=== PATIENT | male | born 1945 | race Caucasian/White ===

== ENCOUNTER → 2017-09-12 18:02 | Outpatient (CLI) | payer MEDICARE, SELFPAY | PROVIDERS: Family Provider Internal Medicine; Visit Provider Nurse Practitioner Adult Health | DX: N39.0 Urinary tract infection, site not specified (principal) | CPT/HCPCS: 87077; 87086; 87088; 87186 ==

== ENCOUNTER 2017-10-11 13:50 | Outpatient (RCR) | payer MEDICARE, OTHER, SELFPAY ==
--- NOTE | 2017-10-11 14:59 | HP.PTEVAL_ITS ---
Patient's Visit Information NIKHIL DIAZ is a 72 year old M referred to Physical Therapy by Edna MINOR with a diagnosis of DDD, L/S spasms. Date of Evaluation: 10/11/17 Physical Therapist: Darell Hester DPT, OC - Visit Plan Frequency: 2x /Week Duration: 4-6 Weeks Plan: 2x/week for 4-6 for. 1. Gentl L/S AROM and progression. Needs pelvic ROM improvement. 2. HS, quad, hip flexor, ITB, prir stretches and progress to HEP, may rollout also. 3. Core stregnth and progress to HEP. Ensure appropriate posture - Subjective Subjective: LBP. I have arthritis. It was spasming to where I could not leave the house for three days early in the week. Missed work. Spasming upon transfers. Pain started upon getting out of shower, no injury. Weak backs in the family. In house for three days and back to wrok yesterday. 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 This spasming has not happened before but he has h/o of some intermittent back discomfort. Works out in basement intermittently. Stretches HS when working out. Biking si hobby and can't wait to do it. Uses recumbent that he uses but hasn't since the fall. Worse with standing. Comfortable at static sit. Trasnfer to sit is worse part. Turning in bed is uncomfortable. Basic ADLs take a little longer. - Pain LBP Pain Intensity (Out of 10): 2 Pain Intensity Range: 0, 8 Comment: pressure - Objective Slow to get up out of chair and shift weight on mat table. Walks I and well. Very tight and hesitant to move pelvis, very little active pelvic ROM. L/S ROM ext mod limited adn pain, flexion Min limited and painful near end range, SB B max limited and hesitant. reflexes 2/3 in patella and achilles. sensation LE WNL to gross light touch. Strength LE 5/5. HS, glut, piri, quad and ITB all max tight - Goals Goal 1:: Pain 0-1/10 at all times especially with transfers. Goal Time Frame: 4-6 Weeks Goal 2:: Full L/S AROM without pain Goal Time Frame: 4-6 Weeks Goal 3:: Patient feel 95% better and back to all original activites without hesitation Goal Time Frame: 4-6 Weeks Goal 4:: Pt I in approp HEP to minimize future problems. Goal Time Frame: 4-6 Weeks - Rehabilitation Potential Physical Therapy Diagnosis: DDD acute pain and inflammation. Rehabilitation Potential: Good - Anticipated Interventions Patient/Client Instruction: Educate patient on: Condition, Plan of Care For the Purpose of:: To decrease pain, To increase ROM, To improve ability of physical actions for home/community/work/leisure Therapeutic Exercise to Include: Flexibilty training, Passive ROM, Active ROM, Dynamic Lumbar Stabilization For the Purpose of:: To decrease pain, To increase ROM, To improve muscle performance and motor function, To improve ability of physical actions for home/ community/work/leisure Manual Therapy Techniques to Include: Soft tissue mobilization For the Purpose of:: To increase ROM, To improve nutrient delivery to tissue Cryotherapy (ice pack, ice massage): Yes For the Purpose of:: To decrease pain, To decrease swelling/inflammation Thank you for the opportunity to evaluate your patient. For Medicare and Medicare HMO plans, please review the plan of care and approve it. It will need to be FAXED BACK to us at [phone] for Medicare purposes. Please let me know if there are questions or concerns regarding this plan of care. Physician Signature: Date:
--- NOTE | 2017-10-21 12:29 | HP.PTDCSUM ---
HP - PT D/C Summary It has been my pleasure to treat NIKHIL DIAZ under orders from DR.DBONEZ Jake for the diagnosis of DDD, L/S spasms for a total of 1 visit(s). Discharge Date: Please see the following information for a summary of their discharge status. - Subjective Subjective: cancelled all visits as it is feeling better. - Pain LBP Pain Intensity (Out of 10): 2 - Goals Goal 1:: Pain 0-1/10 at all times especially with transfers. Goal 2:: Full L/S AROM without pain Goal 3:: Patient feel 95% better and back to all original activites without hesitation Goal 4:: Pt I in approp HEP to minimize future problems. - Plan Plan: D/C at patients request as he is feeling better and does not wish to return. - D/C Information If there are questions or concerns regarding this patient's physical therapy, please feel free to call me at [phone]. Thank you for the referral of this patient. Sincerely, Darell Hester, DPT, OC
== END 2017-10-11 19:00 | disposition home or self-care (01) ==
LOC: PT 13:50
PROVIDERS: Family Provider Internal Medicine; PCP Internal Medicine; Visit Provider Internal Medicine
DX: M62.830 Muscle spasm of back (principal); M51.36 Other intervertebral disc degeneration, lumbar region
CPT/HCPCS: 97110; 97162

== ENCOUNTER → 2017-10-14 13:18 | Outpatient (CLI) | payer MEDICARE, OTHER, SELFPAY | PROVIDERS: Family Provider Internal Medicine; PCP Internal Medicine; Visit Provider Nurse Practitioner Adult Health | DX: N39.0 Urinary tract infection, site not specified (principal) | CPT/HCPCS: 87086; 87088 ==

== ENCOUNTER → 2018-09-29 17:03 | Outpatient (CLI) | payer MEDICARE, OTHER, SELFPAY ==
[2018-04-29 09:31] VITALS: BMI 32.5
--- NOTE | 2018-09-29 17:12 | RAD_ITS ---
STUDY: X-RAY - LEFT SHOULDER REASON FOR EXAM: Male, 73 years old. Shoulder pain TECHNIQUE: 3 view(s) of the shoulder. COMPARISON: None. FINDINGS: Degenerative changes. No acute fracture or dislocation. The soft tissue structures are unremarkable. Normal visualized pulmonary apex. RAD/Shoulder min 2 Views IMPRESSION: No acute fracture or dislocation. Degenerative changes. Electronically Signed: Sriram Fernandes, at 6:21 EDT Tel , Service support ,
== END ==
PROVIDERS: Family Provider Internal Medicine; PCP Internal Medicine; Referring Provider Internal Medicine; Visit Provider Internal Medicine
DX: M19.012 Primary osteoarthritis, left shoulder (principal)
CPT/HCPCS: 73030

== ENCOUNTER → 2018-12-01 16:51 | Outpatient (CLI) | payer MEDICARE, OTHER, SELFPAY ==
[2018-04-29 09:31] VITALS: BMI 32.5
== END ==
PROVIDERS: Family Provider Internal Medicine; PCP Internal Medicine; Referring Provider Nurse Practitioner Adult Health; Visit Provider Nurse Practitioner Adult Health
DX: R31.0 Gross hematuria (principal)
CPT/HCPCS: 87077; 87086; 87088; 87186

== ENCOUNTER → 2018-12-12 17:46 | Outpatient (CLI) | payer MEDICARE, OTHER, SELFPAY ==
--- NOTE | 2018-12-12 17:49 | CT_ITS ---
STUDY: CT ABDOMEN AND PELVIS WITHOUT CONTRAST REASON FOR EXAM: Male, 73 years old. Hematuria RADIATION DOSAGE (If Supplied By Facility): DLP = ( 1331.18 ) mGycm TECHNIQUE: Transaxial images were obtained from the dome of the diaphragm to the symphysis pubis without oral contrast, and without intravenous contrast. Sagittal and coronal images were reconstructed. Individualized dose optimization techniques were used for this CT. COMPARISON: CT abdomen and pelvis March 05, 2016 FINDINGS: Evaluation of the abdominal viscera is limited in the absence of intravenous contrast. The visualized lung bases are clear. The visualized portions of the heart and pericardium are within normal limits. There are no calcified gallstones present. The liver demonstrates an unremarkable unenhanced appearance. The spleen is normal in size. The pancreas demonstrates an unremarkable unenhanced appearance. The adrenal glands are within normal limits. There is now a right UPJ stone with mild hydronephrosis and perinephric edema. There is a left renal mid to lower pole 8 mm stone and a left renal lower pole 4 mm stone. Prostatic seeds are present. Normal visualized stomach. There is no bowel obstruction or inflammation. The appendix is not visualized, but there are no findings to suggest acute appendicitis. The aorta is normal in caliber. There is no abdominal or pelvic free air, free fluid, fluid collection or lymphadenopathy. There are no destructive osseous lesions. CT/Abdomen/Pelvis without Cont IMPRESSION: Right UPJ stone, new from prior, with mild hydronephrosis and perinephric edema. Nonobstructing left renal stones. Electronically Signed: Ran Matute, at 18:26 EDT Tel , Service support ,
[2018-12-12 18:06] LABS: CREATININE FINGERSTICK 3.3 mg/dL (0.70-1.30)
== END ==
PROVIDERS: Family Provider Internal Medicine; PCP Internal Medicine; Referring Provider Urology; Visit Provider Urology
DX: N13.2 Hydronephrosis with renal and ureteral calculous obstruction (principal)
CPT/HCPCS: 74176

== ENCOUNTER 2018-12-13 10:19 | Inpatient (IN) | payer MEDICARE, OTHER, SELFPAY ==
[2018-12-13 10:25] VITALS: PULSE 61; BMI 35.4
--- NOTE | 2018-12-13 10:35 | HP.PCM_ITS ---
History and Physical Date of Admission: 12/13/18 CC: I have blood in my urine. HPI: NIKHIL DIAZ is a 73 year-old male established patient who is here for blood in the urine. CT scan done and found a large obstructing right kidney stone with obstruction. Cr elevated and develop acute renal insufficience. He has had gross hematuria intermittently for the past month. He did see the blood in his urine. He has not seen blood clots. He does not have a burning sensation when he urinates. He is not currently having trouble urinating. He has not recently had unwanted weight loss. ALLERGIES: None MEDICATIONS: Flomax 0.4 mg capsule 1 capsule PO Daily Amlodipine Besylate Aspirin Ec 81 mg tablet, delayed release Atorvastatin Calcium 20 mg tablet Citalopram Hbr 40 mg tablet Eliquis Fenofibrate Valsartan-Hydrochlorothiazide Vitamin D Notes: Has had the pneumonia vaccine PSH: Cysto Dilate Ureteral Stricture - 2014 Cysto Remove Stent FB Sim - 2014 Cysto/Uretero W/Lithotripsy - 2014 Cystoscopy - 02/25/2017 Hernia Repair - 1999 Prostate Needle Biopsy - 2007 Transrectal Biopsy US - 2007 US Guidance Brachytherapy - 2007 NON- PSH: Colonoscopy Heart Surgery (Unspecified) Patient documented to have received pneumococcal vaccination Shoulder Surgery (Unspecified) PMH: Benign prostatic hyperplasia with lower urinary tract symptoms - 09/12/2017 Malignant neoplasm of prostate - 09/12/2017, - 02/25/2017, - 02/07/2017, - 2015, - 2014, - 2013, - 2012 Urinary tract infection, site not specified - 09/12/2017 Gross hematuria - 02/25/2017, - 02/07/2017, - 2014 Calculus of kidney - 2015 Male erectile dysfunction, unspecified - 2013, - 2012 Urgency of urination - 2013 Frequency of micturition Personal history of malignant neoplasm of prostate Poor urinary stream NON- PMH: Essential (primary) hypertension Heart disease, unspecified Hyperlipidemia, unspecified Major depressive disorder, single episode, unspecified Unspecified hearing loss, unspecified ear FAMILY HISTORY: Cardiovascular disease - Brother Colitis - Mother Parkinson's Disease - Father Prostate Cancer - Grandfather Strokes - Father SOCIAL HISTORY: Marital Status: Preferred Language: Georgian; Ethnicity: Not Or ; Race: White Current Smoking Status: Patient does not smoke anymore. Does not use smokeless tobacco. Social Drinker. Does not use drugs. Drinks 3 caffeinated drinks per day. Has not had a blood transfusion. 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 Notes: Pt smokes occas. cigar. Does a lot of biking REVIEW OF SYSTEMS: Constitutional: Patient denies fever, chills, weight loss, and weight gain. Eyes: Patient denies cataracts, vision problems, and blurry vision. Ears, Nose, Mouth, Throat: Patient denies hearing loss, sinus infections, nasal stuffiness, and sleep apnea. Cardiovascular: h/o a fib and heart ablation x 2. Patient denies chest pains, swollen ankles, irregular heartbeat, and pacemaker/defibrillator. Gastrointestinal: Patient denies abdominal pain, nausea/vomiting, and change in bowels. Genitourinary: Patient reports blood in urine and history of stones. Patient denies frequent urination, urinary retention, get up at night to void, leakage of urine, frequent urinary tract infections, difficulty starting stream, weak stream, and bedwetting. Musculoskeletal: shoulder arthritis. Patient reports arthritis. Patient denies sore muscles, back pain, and gout. Neurological: Patient denies numbness, dizziness, stroke/tia, and history of falling/unsteadiness.. Hematologic/Lymphatic: Patient denies swollen glands, abnormal bleeding, transfusion history, and blood clots/dvt/pulmonary embolism. VITAL SIGNS: Weight 250 lb / 113.4 kg Height 72 in / 182.88 cm BP 138/86 mmHg BMI 33.9 kg/m? PHYSICAL EXAMINATION: Anus and Perineum: No hemorrhoids. No anal stenosis. No rectal fissure, no anal fissure. No edema, no dimple, no perineal tenderness, no anal tenderness. Prostate: flat no nodules Seminal Vesicles: Nonpalpable. Sphincter Tone: Normal sphincter. No rectal tenderness. No rectal mass. MULTI-SYSTEM PHYSICAL EXAMINATION: Constitutional: Well-nourished. No physical deformities. Normally developed. Good grooming. Neurologic / Psychiatric: Oriented to time, oriented to place, oriented to person. No depression, no anxiety, no agitation. PAST DATA REVIEWED: Source Of History: Patient Records Review: Previous Patient Records Urine Test Review: Urinalysis 10/03/18 08/16/17 08/13/16 12/15/14 01/04/1412/01/13 05/03/12 05/06/11 PSA Total PSA 0.3 0.3 0.4 0.30 0.50 0.52 0.40 0.50 PROCEDURES: Urinalysis - 03772 Dipstick Dipstick Cont'd Specimen: Voided Blood: about 250 Appearance: Cloudy pH: 5.0 Color: Dark Protein: Neg Glucose: Normal Urobilinogen: Neg Bilirubin: Neg Nitrites: Neg Ketones: Neg Leukocyte Esterase: 1+ ASSESSMENT: ICD-10 Details Right renal calculi at UPJ h/o anticoagulation on blood thinners. 1 : Gross hematuria - R31.0 2 Personal history of malignant neoplasm of prostate - Z85.46 3 Personal history of urinary calculi - Z87.442 Admit for Kidney stone check cbc, bmp, u/a and culture npo, plan for stent placement today on right, will not able to do laser of stone b/c anticoagulation plan to admit place stent rehydrate and discharge once stable hospital to consult to assit with medical issues. thanks
--- NOTE | 2018-12-13 10:46 | EKGRS_ITS ---
Test Reason : PREOP Blood Pressure : / mmHG Vent. Rate : 059 BPM Atrial Rate : 059 BPM P-R Int : 184 ms QRS Dur : 102 ms QT Int : 406 ms P-R-T Axes : 070 033 026 degrees QTc Int : 401 ms Sinus bradycardia Otherwise normal ECG When compared with ECG of 06-AUG-2016 12:25, Criteria for Septal infarct are no longer Present Confirmed by CHARLES MOYA, EZRA ([id number]), newspaper photo editor NANDINI MUNOZ ([id number]) on 12/22/2018 2:47:39 PM Referred By: Rangel Armstrong Confirmed By:EZRA SOTO MD
[2018-12-13] MEDS: 0.9% Normal Saline 1,000 ML 125 ML IV (11:02)
--- NOTE | 2018-12-13 11:05 | RAD_ITS ---
STUDY: X-RAY CHEST REASON FOR EXAM: Male, 73 years old. Preoperative TECHNIQUE: Frontal view of the chest COMPARISON: X-ray chest March 02, 2016 FINDINGS: The lungs are clear. There are no pleural effusions. There is no pneumothorax. The heart is normal in size. The visualized osseous structures are within normal limits. RAD/Chest 1 View (Portable) IMPRESSION: No acute thoracic pathology. Electronically Signed: Ran Matute, at 15:40 EDT Tel , Service support ,
[2018-12-13 11:10] LABS: Absolute Lymphocyte Count 1.13 X10^3/ul (0.83-4.51); Absolute Neutrophil Count 3.5 X10^3/uL (2.0-7.7); Basophil# 0.02 X10^3/uL; Basophil% 0.4 % (0-1); Eosinophil# 0.16 X10^3/uL; Hematocrit 46.1 % (40-54); Hemoglobin 15.3 g/dl (13.0-16.5); Lymphocyte # 1.13 X10^3/ul (4.0); Lymphocyte % 21.3 % (19-41); Mean Corp Hgb Conc 33.2 g/gl (32-36); Mean Corpuscular Hgb 26.1 pg (27.0-32.0); Mean Corpuscular Volume 78.7 fL (80-94); Mean Platelet Vol. 10.6 fl (6.2-12.0); Monocyte# 0.47 X10^3/uL; Monocyte% 8.9 % (0-10); Neutrophil # 3.48 X10^3/uL (2.7-7.7); Neutrophil % 65.5 % (47-70); Platelet Count 156 K/mm3 (150-450); RBC Distribution Width CV 14.4 % (11.6-14.6); RBC Distribution Width SD 40.9 fl (35.1-43.9); Red Blood Count 5.86 M/mm3 (4.6-6.2); White Blood Count 5.3 K/mm3 (4.4-11.0)
[2018-12-13 11:12] LABS: POSITIVE COUNT NO; POSITIVE DIFFERENTIAL NO; POSITIVE MORPHOLOGY NO
[2018-12-13 11:19] LABS: Anion Gap 5 (5-15); BUN 19 mg/dL (7-18); Chloride 107 mmol/L (98-107); Creatinine, Serum 1.12 mg/dL (0.70-1.30); EST Glomerular Filtration Rate 69 mL/min (>60); Est Glom Filt Rate - Afr Amer 83 mL/min (>60); Glucose 95 mg/dL (74-106); Potassium 3.9 mmol/L (3.5-5.1); Sodium Level 141 mmol/L (136-145)
[2018-12-13 11:21] VITALS: BP 138/88; PULSE 61; RESP 18; TEMP 37.1; O2SAT 98
--- NOTE | 2018-12-13 12:14 | PCM.PROGNOTE ---
<Tete Sandoval - Last Filed: 12/13/18 12:30> Subjective: Patient seen and examined. To undergo right stent placement for right kidney stone nephrolithiasis with obstruction. Denies pain currently. Denies other current complaints. - Physical Exam General: Alert, Oriented x3, Cooperative HEENT: Atraumatic, PERRLA, EOMI, Normocephalic Neck: Supple, No JVD, Negative Carotid Bruits Lungs: Clear to auscultation, Normal air movement Cardiovascular: Regular rate, Regular Rhythm, Normal S1, Normal S2, No murmurs Abdomen: Bowel Sounds Present, Soft, Non Tender, Non-Distended, Obese Extremities: No clubbing, No cyanosis, No edema, Capillary Refill Less than 3 Seconds Skin: No rashes, No breakdown Musculoskeletal: No Tenderness to Palpation of Joints or Extremities Neurological: Cranial nerves II-XII grossly intact Psych/Mental Status: Normal Affect, Appropriate Vital Signs Temp Pulse Resp BP Pulse Ox 98.7 F 61 18 138/88 H 98 12/13/18 11:21 12/13/18 11:21 12/13/18 11:21 12/13/18 11:21 12/13/18 11:21 Oxygen Delivery Method Room Air Weight: 261 lb Body Mass Index (BMI) 35.4 Laboratory Tests Past 24 Hrs 12/13/18 12/13/18 10:55 10:55 WBC 5.3 RBC 5.86 Hgb 15.3 Hct 46.1 MCV 78.7 L MCH 26.1 L MCHC 33.2 RDW 14.4 RDW Differential 40.9 Plt Count 156 MPV 10.6 Immature Gran % (Auto) 0.900 Neut % (Auto) 65.5 Lymph % (Auto) 21.3 [place] % (Auto) 8.9 Eos % (Auto) 3.0 Baso % (Auto) 0.4 Absolute Neuts (auto) 3.5 Absolute Lymphs (auto) 1.13 Total Counted Not Reportable Sodium 141 Potassium 3.9 Chloride 107 Carbon Dioxide 29.0 Anion Gap 5 BUN 19 H Creatinine 1.12 Estim Creat Clear Calc 66.40 Est GFR (MDRD) Af Amer 83 Est GFR (MDRD) Non-Af 69 BUN/Creatinine Ratio 17.0 Glucose 95 Calcium 9.0 Medical Necessity - Tobacco Use Smoking Status: Former smoker Assessment/Plan All Active Problems (Last Reviewed 04/29/18 @ 09:45 by Isai Serna MD) History of cardiac radiofrequency ablation (RFA) (Resolved 11/01/16) 1. Right renal calculi, with mild hydronephrosis- Dr. Armstrong, urology on consult. Plan for right stent placement. Patient has history of ureterolithiasis. Hold anticoagulation, aspirin. Further management per urology. CT of abdomen and pelvis completed prior to admission shows right UPJ stone, new from prior with mild hydronephrosis and perinephric edema. Nonobstructing left renal stones. 2. History of prostate cancer-in remission 3. BPH-continue Flomax regimen. 4. Hypertension-stable, continue amlodipine, valsartan. 5. Hyperlipidemia-continue statin, fenofibrate. 6. Atrial flutter status post ablation x2, effective in maintaining NSR-following with Dr. Serna as well as patch washer. On anticoagulation with Eliquis which is currently on hold. 7. Depression-continue citalopram regimen. DVT prophylaxis-SCDs This patient was seen by VIVIEN Soto under the supervision of Dr. Orlando. <Jesse Orlando F - Last Filed: 12/13/18 14:13> - Physical Exam Vital Signs Temp Pulse Resp BP Pulse Ox 98.7 F 61 18 138/88 H 98 12/13/18 11:21 12/13/18 11:21 12/13/18 11:21 12/13/18 11:21 12/13/18 11:21 Oxygen Delivery Method Room Air Weight: 261 lb 0.437 oz Body Mass Index (BMI) 35.4 Intake and Output for Last 24 Hours 12/11/18 12/12/18 12/13/18 23:59 23:59 23:59 Intake Total 125 / 125 Output Total 200 / 200 Balance -75 / -75 Laboratory Tests Past 24 Hrs 12/13/18 12/13/18 10:55 10:55 WBC 5.3 RBC 5.86 Hgb 15.3 Hct 46.1 MCV 78.7 L MCH 26.1 L MCHC 33.2 RDW 14.4 RDW Differential 40.9 Plt Count 156 MPV 10.6 Immature Gran % (Auto) 0.900 Neut % (Auto) 65.5 Lymph % (Auto) 21.3 [place] % (Auto) 8.9 Eos % (Auto) 3.0 Baso % (Auto) 0.4 Absolute Neuts (auto) 3.5 Absolute Lymphs (auto) 1.13 Total Counted Not Reportable Sodium 141 Potassium 3.9 Chloride 107 Carbon Dioxide 29.0 Anion Gap 5 BUN 19 H Creatinine 1.12 Estim Creat Clear Calc 66.40 Est GFR (MDRD) Af Amer 83 Est GFR (MDRD) Non-Af 69 BUN/Creatinine Ratio 17.0 Glucose 95 Calcium 9.0 Code Visit Addendum: Dr. Orlando I personally examined the patient and reviewed the chart. I agree with the above. 73-year-old male who presented with blood in his urine. He has a history of being on Eliquis for A. fib that he has had ablated twice. He was found to have a large obstructing right kidney stone on CT scan and was admitted for the plan of removing the stone and placement stent per urology. He denies any chest pain, shortness of breath ambulation and has been doing well with his home medications prior to presenting to the hospital. Currently creatinine is stable at 1.12 and does not have renal failure. He states that he had blood work done yesterday and was told that his creatinine was 3.2, however I cannot find any evidence of that. Inpatient E&M: [id number] [facility] Hosp L3
--- NOTE | 2018-12-13 12:21 | PN_ITS ---
<Tete Sandoval - Last Filed: 12/13/18 12:30> Subjective: Patient seen and examined. To undergo right stent placement for right kidney stone nephrolithiasis with obstruction. Denies pain currently. Denies other current complaints. - Physical Exam General: Alert, Oriented x3, Cooperative HEENT: Atraumatic, PERRLA, EOMI, Normocephalic Neck: Supple, No JVD, Negative Carotid Bruits Lungs: Clear to auscultation, Normal air movement Cardiovascular: Regular rate, Regular Rhythm, Normal S1, Normal S2, No murmurs Abdomen: Bowel Sounds Present, Soft, Non Tender, Non-Distended, Obese Extremities: No clubbing, No cyanosis, No edema, Capillary Refill Less than 3 Seconds Skin: No rashes, No breakdown Musculoskeletal: No Tenderness to Palpation of Joints or Extremities Neurological: Cranial nerves II-XII grossly intact Psych/Mental Status: Normal Affect, Appropriate Vital Signs Temp Pulse Resp BP Pulse Ox 98.7 F 61 18 138/88 H 98 12/13/18 11:21 12/13/18 11:21 12/13/18 11:21 12/13/18 11:21 12/13/18 11:21 Oxygen Delivery Method Room Air Weight: 261 lb Body Mass Index (BMI) 35.4 Laboratory Tests Past 24 Hrs 12/13/18 12/13/18 10:55 10:55 WBC 5.3 RBC 5.86 Hgb 15.3 Hct 46.1 MCV 78.7 L MCH 26.1 L MCHC 33.2 RDW 14.4 RDW Differential 40.9 Plt Count 156 MPV 10.6 Immature Gran % (Auto) 0.900 Neut % (Auto) 65.5 Lymph % (Auto) 21.3 [place] % (Auto) 8.9 Eos % (Auto) 3.0 Baso % (Auto) 0.4 Absolute Neuts (auto) 3.5 Absolute Lymphs (auto) 1.13 Total Counted Not Reportable Sodium 141 Potassium 3.9 Chloride 107 Carbon Dioxide 29.0 Anion Gap 5 BUN 19 H Creatinine 1.12 Estim Creat Clear Calc 66.40 Est GFR (MDRD) Af Amer 83 Est GFR (MDRD) Non-Af 69 BUN/Creatinine Ratio 17.0 Glucose 95 Calcium 9.0 Medical Necessity - Tobacco Use Smoking Status: Former smoker Assessment/Plan All Active Problems (Last Reviewed 04/29/18 @ 09:45 by Isai Serna MD) History of cardiac radiofrequency ablation (RFA) (Resolved 11/01/16) 1. Right renal calculi, with mild hydronephrosis- Dr. Armstrong, urology on consult. Plan for right stent placement. Patient has history of ureterolithiasis. Hold anticoagulation, aspirin. Further management per urology. CT of abdomen and pelvis completed prior to admission shows right UPJ stone, new from prior with mild hydronephrosis and perinephric edema. Nonobstructing left renal stones. 2. History of prostate cancer-in remission 3. BPH-continue Flomax regimen. 4. Hypertension-stable, continue amlodipine, valsartan. 5. Hyperlipidemia-continue statin, fenofibrate. 6. 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 Serna as well as twist maker. On anticoagulation with Eliquis which is currently on hold. 7. Depression-continue citalopram regimen. DVT prophylaxis-SCDs This patient was seen by VIVIEN Soto under the supervision of Dr. Orlando. <Jesse Orlando F - Last Filed: 12/13/18 14:13> - Physical Exam Vital Signs Temp Pulse Resp BP Pulse Ox 98.7 F 61 18 138/88 H 98 12/13/18 11:21 12/13/18 11:21 12/13/18 11:21 12/13/18 11:21 12/13/18 11:21 Oxygen Delivery Method Room Air Weight: 261 lb 0.437 oz Body Mass Index (BMI) 35.4 Intake and Output for Last 24 Hours 12/11/18 12/12/18 12/13/18 23:59 23:59 23:59 Intake Total 125 / 125 Output Total 200 / 200 Balance -75 / -75 Laboratory Tests Past 24 Hrs 12/13/18 12/13/18 10:55 10:55 WBC 5.3 RBC 5.86 Hgb 15.3 Hct 46.1 MCV 78.7 L MCH 26.1 L MCHC 33.2 RDW 14.4 RDW Differential 40.9 Plt Count 156 MPV 10.6 Immature Gran % (Auto) 0.900 Neut % (Auto) 65.5 Lymph % (Auto) 21.3 [place] % (Auto) 8.9 Eos % (Auto) 3.0 Baso % (Auto) 0.4 Absolute Neuts (auto) 3.5 Absolute Lymphs (auto) 1.13 Total Counted Not Reportable Sodium 141 Potassium 3.9 Chloride 107 Carbon Dioxide 29.0 Anion Gap 5 BUN 19 H Creatinine 1.12 Estim Creat Clear Calc 66.40 Est GFR (MDRD) Af Amer 83 Est GFR (MDRD) Non-Af 69 BUN/Creatinine Ratio 17.0 Glucose 95 Calcium 9.0 Code Visit Addendum: Dr. Orlando I personally examined the patient and reviewed the chart. I agree with the above. 73-year-old male who presented with blood in his urine. He has a history of being on Eliquis for A. fib that he has had ablated twice. He was found to have a large obstructing right kidney stone on CT scan and was admitted for the plan of removing the stone and placement stent per urology. He denies any chest pain, shortness of breath ambulation and has been doing well with his home medications prior to presenting to the hospital. Currently creatinine is stable at 1.12 and does not have renal failure. He states that he had blood work done yesterday and was told that his creatinine was 3.2, however I cannot find any evidence of that. Inpatient E&M: [id number] [facility] Hosp L3
--- NOTE | 2018-12-13 14:40 | CM.UR ---
RN CM Assessment Met face to face with patient and for initial transition planning/care coordination assessment. Introduced myself and my role. Verb understanding and agreement for assessment. Presentation: hematuria. hx of prostate cancer PCP: Juhi Specialists: Joshua Preferred Pharmacy: [facility] Insurance: MCR and [place] supplement Prescription Benefit: yes. no problem affording medications. LNOK: Carol Home: 1 story and 1 step to get in. ADLs: independent. Transportation: drives self DME: cpap from [facility] SNF/HHC: none Passport/waiver finance mgr: NA Advance Directives: on file, Carol is DPOA DC PLAN: home, no need anticipated. Denies any needs. 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 Daysi Dunlap RN, CCM.
[2018-12-13 14:46] VITALS: BP 136/85; PULSE 62; RESP 18; TEMP 37.1; O2SAT 98; BMI 35.4
[2018-12-13 19:50] VITALS: BP 141/83; PULSE 72; RESP 16; TEMP 36.7; O2SAT 96
[2018-12-13] MEDS: Ciprofloxacin 400 MG/200 ML BAG 200 MG IV (21:46)
[2018-12-14] VITALS (9 sets, daily range): BP systolic 126–147; BP diastolic 70–97; PULSE 53–65; RESP 17–18; TEMP 36.5–37.2; O2SAT 94–99; BMI 35.4
[2018-12-14] MEDS: 0.9% Normal Saline 1,000 ML 125 ML IV ×2 (02:02→09:07)
[2018-12-14] MEDS: Cefazolin 1 GM/50 ML BAG IV (09:45)
--- NOTE | 2018-12-14 10:13 | PCM.PROGNOTE ---
Subjective: plan for laser stone today. - Physical Exam General: Alert, Oriented x3, Cooperative HEENT: Atraumatic, PERRLA, EOMI, Normocephalic Neck: Supple, No JVD, Negative Carotid Bruits Lungs: Clear to auscultation, Normal air movement Cardiovascular: Regular rate, No murmurs Abdomen: Bowel Sounds Present, Soft, Non Tender Extremities: No edema, Capillary Refill Less than 3 Seconds Skin: No rashes, No breakdown Musculoskeletal: No Tenderness to Palpation of Joints or Extremities Neurological: Cranial nerves II-XII grossly intact Psych/Mental Status: Normal Affect, Appropriate Vital Signs Temp Pulse Resp BP Pulse Ox 98.3 F 56 L 18 138/93 H 99 12/14/18 08:10 12/14/18 08:10 12/14/18 08:10 12/14/18 08:10 12/14/18 08:10 Oxygen Delivery Method Room Air Weight: 118.4 kg Body Mass Index (BMI) 35.4 Intake and Output for Last 24 Hours 12/12/18 12/13/18 12/14/18 23:59 23:59 23:59 Intake Total 1125 / 1125 2714 / 2714 Output Total 700 / 700 1900 / 1900 Balance 425 / 425 814 / 814 Laboratory Tests Past 24 Hrs 12/13/18 12/13/18 10:55 10:55 WBC 5.3 RBC 5.86 Hgb 15.3 Hct 46.1 MCV 78.7 L MCH 26.1 L MCHC 33.2 RDW 14.4 RDW Differential 40.9 Plt Count 156 MPV 10.6 Immature Gran % (Auto) 0.900 Neut % (Auto) 65.5 Lymph % (Auto) 21.3 [place] % (Auto) 8.9 Eos % (Auto) 3.0 Baso % (Auto) 0.4 Absolute Neuts (auto) 3.5 Absolute Lymphs (auto) 1.13 Total Counted Not Reportable Sodium 141 Potassium 3.9 Chloride 107 Carbon Dioxide 29.0 Anion Gap 5 BUN 19 H Creatinine 1.12 Estim Creat Clear Calc 66.40 Est GFR (MDRD) Af Amer 83 Est GFR (MDRD) Non-Af 69 BUN/Creatinine Ratio 17.0 Glucose 95 Calcium 9.0 Medical Necessity - Tobacco Use Smoking Status: Former smoker Assessment/Plan All Active Problems (Last Reviewed 04/29/18 @ 09:45 by Isai Serna MD) History of cardiac radiofrequency ablation (RFA) (Resolved 11/01/16) npo, laser stone today home after case today.
--- NOTE | 2018-12-14 10:15 | DCINST_ITS ---
Discharge Diet: Light diet - advance as tolerated Discharge Activity: Return to Normal Activity Suture Line Care: Avoid Pulling/Pushing, Avoid Pinching/Bending Allergies/Adverse Reactions: Allergies No Known Allergies Allergy (Verified 04/29/18 09:32) Medications to take at Discharge Atorvastatin Calcium [Lipitor] 20 mg PO QHS 03/02/16 Citalopram Hydrobromide [Citalopram HBr] 40 mg PO DAILY 03/02/16 Fenofibrate [Lofibra] 160 mg PO DAILY 03/02/16 Tamsulosin HCl [Flomax] 0.4 mg PO DAILY 03/02/16 Amlodipine [Norvasc] 5 mg PO DAILY 08/03/16 Valsartan [Diovan] 320 mg PO DAILY 08/06/16 apixaban 5 mg tablet 5 mg PO BID 10/07/17 aspirin 81 mg tablet,delayed release 81 mg PO QDAY tab 10/07/17 Ciprofloxacin [Cipro] 500 mg PO BID #10 tab 12/14/18 Hydrocodone/Acetaminophen [[place] 5-325 Tablet] 1 ea PO Q4H PRN PRN 5 Days #14 tab 12/14/18 The following prescriptions were given: Hydrocodone/Acetaminophen [[place] 5-325 Tablet] 1 ea PO Q4H PRN PRN 5 Days #14 tab PRN Reason: Pain Ciprofloxacin [Cipro] 500 mg PO BID #10 tab Primary Care Physician: Edna Reynaga MD [Primary Care Provider] - Test Results: Test results from this visit will be discussed in further detail at your follow- up appointment, if applicable. Please Follow Up With: Rangel Armstrong MD When: please call to make an appointment.
--- NOTE | 2018-12-14 10:17 | OP.PCM_ITS ---
Report of Operation Date of Procedure: 12/14/18 Pre-Operative Diagnosis: Right ureteral calculi causing obstruction hydron ephrosis pain and acute renal insufficiency Post-Operative Diagnosis: Same Surgery/Procedure Performed:: Cystoscopy, balloon dilation of the right ureter, right ureteroscopy laser lithotripsy of stent and right stent placement Description of Surgical Findings:: 73-year-old male taken back to the operating room the smooth induction of general anesthesia he was placed in dorsolithotomy position, the penis testicles were prepped and draped in usual sterile fashion went into the bladder with a 21 [place] rigid cystourethroscope. The entire the entire length of the urethra was normal, the prostate was slightly enlarged with bilateral hypertrophy, inside the bladder the trigone was normal he had a mildly trabeculated bladder no tumors or stones seen within the bladder then cannulated the right ureteral orifice with a Glidewire and a advanced a wire up past the stone I then advanced the balloon dilator up the ureter balloon dilated the distal ureter. I then backloaded office after wire up the wire in place over the wire I went with a flexible ureteroscope was able to get the ureter quite easily went all the way up to the stone in the right UPJ area it was a 8 mm stone I then used a 270 ?m laser fiber laser the stone little tiny pieces into there were dust fragments. I then worked my way down the ureter backloaded the wire back up the ureter and then backloaded the scope over the wire and then loaded the stent up on the left side drain the bladder pulled the wire the stent coiled in the kidney bladder go od position left the string of the stent for easy extraction about a week patient anesthetic is currently being reversed. Was able to successfully lasered the stone completely and place a stent. Type of Anesthesia:: General Drains: stent - Admit VTE Documentation VTE Present on Admission: No VTE Mechan Device Prophylaxis: SCD's
--- NOTE | 2018-12-14 11:33 | PCM.PROGNOTE ---
<Tete Sandoval - Last Filed: 12/14/18 11:37> Subjective: Patient seen and examined this morning prior to cystoscopy and right stent placement by Dr. Armstrong. He denies issues overnight. Eager to return home following procedure. - Physical Exam General: Alert, Oriented x3, Cooperative HEENT: Atraumatic, PERRLA, EOMI, Normocephalic Neck: Supple, No JVD, Negative Carotid Bruits Lungs: Clear to auscultation, Normal air movement Cardiovascular: Regular rate, Regular Rhythm, Normal S1, Normal S2, No murmurs Abdomen: Bowel Sounds Present, Soft, Non Tender, Non-Distended, Obese Extremities: No clubbing, No cyanosis, No edema, Capillary Refill Less than 3 Seconds Skin: No rashes, No breakdown Musculoskeletal: No Tenderness to Palpation of Joints or Extremities Neurological: Cranial nerves II-XII grossly intact, Neuro grossly intact Psych/Mental Status: Normal Affect, Appropriate Vital Signs Temp Pulse Resp BP Pulse Ox 98.2 F 57 L 18 126/81 H 98 12/14/18 11:31 12/14/18 11:31 12/14/18 11:31 12/14/18 11:31 12/14/18 11:31 Oxygen Delivery Method Room Air Weight: 261 lb 0.437 oz Body Mass Index (BMI) 35.4 Intake and Output for Last 24 Hours 12/12/18 12/13/18 12/14/18 23:59 23:59 23:59 Intake Total 1125 / 1125 3914 / 3914 Output Total 700 / 700 2600 / 2600 Balance 425 / 425 1314 / 1314 Medical Necessity - Tobacco Use Smoking Status: Former smoker Assessment/Plan All Active Problems (Last Reviewed 04/29/18 @ 09:45 by Isai Serna MD) History of cardiac radiofrequency ablation (RFA) (Resolved 11/01/16) 1. Right renal calculi, with mild obstruction hydronephrosis- Dr. Armstrong, urology on consult. Patient underwent cystoscopy, balloon dilation of right ureter and right ureteroscopy laser lithotripsy and right stent placement 12/14/2018. Patient has history of ureterolithiasis. CT of abdomen and pelvis completed prior to admission shows right UPJ stone, new from prior with mild hydronephrosis and perinephric edema. Nonobstructing left renal stones. Placed on PRN pain regimen and Cipro by urology. Outpatient follow-up with urology. 2. History of prostate cancer-in remission 3. BPH-continue Flomax regimen. 4. Hypertension-stable, continue amlodipine, valsartan. 5. Hyperlipidemia-continue statin, fenofibrate. 6. Atrial flutter status post ablation x2, effective in maintaining NSR-following with Dr. 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 On anticoagulation with Eliquis. 7. Depression-continue citalopram regimen. DVT prophylaxis-SCDs Discharge planning-patient is stable for discharge from medical standpoint. Further outpatient management per urology. This patient was seen by VIVIEN Soto under the supervision of Dr. Orlando. <Jesse Orlando F - Last Filed: 12/14/18 11:44> - Physical Exam Vital Signs Temp Pulse Resp BP Pulse Ox 98.2 F 57 L 18 126/81 H 98 12/14/18 11:31 12/14/18 11:31 12/14/18 11:31 12/14/18 11:31 12/14/18 11:31 Oxygen Delivery Method Room Air Weight: 261 lb 0.437 oz Body Mass Index (BMI) 35.4 Intake and Output for Last 24 Hours 12/12/18 12/13/18 12/14/18 23:59 23:59 23:59 Intake Total 1125 / 1125 3914 / 3914 Output Total 700 / 700 2600 / 2600 Balance 425 / 425 1314 / 1314 Code Visit Addendum: Dr. Orlando I personally examined the patient and reviewed the chart. I agree with the above. 73-year-old male who presented with hematuria. Was found to have a kidney stone and he underwent intervention today with stent placement. He is stable for discharge after the procedure if cleared by the primary service. From medical standpoint he will have his hematuria further worked up as an outpatient. Of note there was documentation that he had renal failure however his creatinine on the day of admission was 1.12 and he said that he was told that he had a creatinine three-point past day however I cannot find any evidence of this. I have no changes to make to his medical management and he can follow-up with his primary care doctor as an outpatient. Inpatient E&M: 59642 Subs Hosp L2
--- NOTE | 2018-12-14 11:37 | PN_ITS ---
<Tete Sandoval - Last Filed: 12/14/18 11:37> Subjective: Patient seen and examined this morning prior to cystoscopy and right stent placement by Dr. Armstrong. He denies issues overnight. Eager to return home following procedure. - Physical Exam General: Alert, Oriented x3, Cooperative HEENT: Atraumatic, PERRLA, EOMI, Normocephalic Neck: Supple, No JVD, Negative Carotid Bruits Lungs: Clear to auscultation, Normal air movement Cardiovascular: Regular rate, Regular Rhythm, Normal S1, Normal S2, No murmurs Abdomen: Bowel Sounds Present, Soft, Non Tender, Non-Distended, Obese Extremities: No clubbing, No cyanosis, No edema, Capillary Refill Less than 3 Seconds Skin: No rashes, No breakdown Musculoskeletal: No Tenderness to Palpation of Joints or Extremities Neurological: Cranial nerves II-XII grossly intact, Neuro grossly intact Psych/Mental Status: Normal Affect, Appropriate Vital Signs Temp Pulse Resp BP Pulse Ox 98.2 F 57 L 18 126/81 H 98 12/14/18 11:31 12/14/18 11:31 12/14/18 11:31 12/14/18 11:31 12/14/18 11:31 Oxygen Delivery Method Room Air Weight: 261 lb 0.437 oz Body Mass Index (BMI) 35.4 Intake and Output for Last 24 Hours 12/12/18 12/13/18 12/14/18 23:59 23:59 23:59 Intake Total 1125 / 1125 3914 / 3914 Output Total 700 / 700 2600 / 2600 Balance 425 / 425 1314 / 1314 Medical Necessity - Tobacco Use Smoking Status: Former smoker Assessment/Plan All Active Problems (Last Reviewed 04/29/18 @ 09:45 by Isai Serna MD) History of cardiac radiofrequency ablation (RFA) (Resolved 11/01/16) 1. Right renal calculi, with mild obstruction hydronephrosis- Dr. Armstrong, urology on consult. Patient underwent cystoscopy, balloon dilation of right ureter and right ureteroscopy laser lithotripsy and right stent placement 12/14/2018. Patient has history of ureterolithiasis. CT of abdomen and pelvis completed prior to admission shows right UPJ stone, new from prior with mild hydronephrosis and perinephric edema. Nonobstructing left renal stones. Placed on PRN pain regimen and Cipro by urology. Outpatient follow-up with urology. 2. History of prostate cancer-in remission 3. BPH-continue Flomax regimen. 4. Hypertension-stable, continue amlodipine, valsartan. 5. Hyperlipidemia-continue statin, fenofibrate. 6. 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 On anticoagulation with Eliquis. 7. Depression-continue citalopram regimen. DVT prophylaxis-SCDs Discharge planning-patient is stable for discharge from medical standpoint. Further outpatient management per urology. This patient was seen by VIVIEN Soto under the supervision of Dr. Orlando. <Jesse Orlando F - Last Filed: 12/14/18 11:44> - Physical Exam Vital Signs Temp Pulse Resp BP Pulse Ox 98.2 F 57 L 18 126/81 H 98 12/14/18 11:31 12/14/18 11:31 12/14/18 11:31 12/14/18 11:31 12/14/18 11:31 Oxygen Delivery Method Room Air Weight: 261 lb 0.437 oz Body Mass Index (BMI) 35.4 Intake and Output for Last 24 Hours 12/12/18 12/13/18 12/14/18 23:59 23:59 23:59 Intake Total 1125 / 1125 3914 / 3914 Output Total 700 / 700 2600 / 2600 Balance 425 / 425 1314 / 1314 Code Visit Addendum: Dr. Orlando I personally examined the patient and reviewed the chart. I agree with the above. 73-year-old male who presented with hematuria. Was found to have a kidney stone and he underwent intervention today with stent placement. He is stable for discharge after the procedure if cleared by the primary service. From medical standpoint he will have his hematuria further worked up as an outpatient. Of note there was documentation that he had renal failure however his creatinine on the day of admission was 1.12 and he said that he was told that he had a creatinine three-point past day however I cannot find any evidence of this. I have no changes to make to his medical management and he can follow- up with his primary care doctor as an outpatient. Inpatient E&M: 90320 Subs Hosp L2
[2018-12-14] MEDS: Ciprofloxacin 400 MG/200 ML BAG 200 MG IV (12:50)
== END 2018-12-14 14:53 | disposition home or self-care (01) | DRG 661 ==
PROVIDERS: Admitting Provider Urology; Family Provider Internal Medicine; PCP Internal Medicine; Visit Provider Urology
DX: N13.2 Hydronephrosis with renal and ureteral calculous obstruction (principal); N28.9 Disorder of kidney and ureter, unspecified; N40.0 Benign prostatic hyperplasia without lower urinary tract symptoms; Z87.442 Personal history of urinary calculi; E78.00 Pure hypercholesterolemia, unspecified; F32.9 Major depressive disorder, single episode, unspecified; I10 Essential (primary) hypertension; I48.91 Unspecified atrial fibrillation; G47.30 Sleep apnea, unspecified; Z85.46 Personal history of malignant neoplasm of prostate; Z79.82 Long term (current) use of aspirin; Z79.01 Long term (current) use of anticoagulants; Z79.899 Other long term (current) drug therapy; Z87.891 Personal history of nicotine dependence
CPT/HCPCS: 71045; 74176; 80048; 85025; 87086; 87088; 93005; J7030; A4216; C1726; C1769; C2617; J0744; J2405

== ENCOUNTER → 2018-12-19 16:17 | Outpatient (CLI) | payer MEDICARE, OTHER, SELFPAY ==
[2018-12-14 08:10] VITALS: BMI 35.4
--- NOTE | 2018-12-19 12:30 | COLBX_PTH ---
PATIENT: NIKHIL DIAZ LOC: [facility] U#:[id number] AGE/SX: 79/M ROOM: RE12/19/[address]: Dr. Luiz Rich MD : [id number] BED: DIS: SPEC #: [id number] RECD: 12/19/18 15:40 STATUS: JONNA LOPEZ #: [id number] KARUNA: 12/19/18 12:[address]: Luiz Rich DEPT: SURGICAL PATHOLOGY RECD BY: Jon Grey ENTERED: 12/22/18 08:47 SP TYPE: COLON BX OTHR DR: Dr. Edna Reynaga MD [facility] Tissues: Sigmoid colon biopsy Procedures: Surgery Specimen Level IV HEADER OPERATION: Colonoscopy with biopsy PRE-OP DIAGNOSIS: Screening/polyp TISSUE SUBMITTED: Sigmoid polyp biopsy, rule out adenoma MICROSCOPIC DIAGNOSIS Sigmoid polyp, biopsy: Fragments of colonic mucosa, no pathologic diagnosis. AM:[place] 12/23/18 MICROSCOPIC DESCRIPTION Slides are reviewed. GROSS DESCRIPTION Received in fixative is one container labeled with the patient's name and designated sigmoid. The specimen consists of two irregular fragments of light martinez soft tissue that in aggregate measure 0.3 x 0.3 x 0.1 cm. The specimen is totally submitted in one cassette. / AM:[place] 12/22/18 TC:4 CPT: 09913
== END ==
PROVIDERS: Family Provider Internal Medicine; PCP Internal Medicine; Referring Provider Internal Medicine Gastroenterology; Visit Provider Internal Medicine Gastroenterology
DX: Z12.11 Encounter for screening for malignant neoplasm of colon (principal); K63.5 Polyp of colon
CPT/HCPCS: 88305

== ENCOUNTER → 2018-12-22 | Outpatient (CLI) | payer MEDICARE, OTHER, SELFPAY ==
[2018-12-14 08:10] VITALS: BMI 35.4
[2018-12-22 09:40] LABS: Anion Gap 8 (5-15); BUN 21 mg/dL (7-18); BUN/Creat Ratio 18.8 RATIO (10-20); Calcium,Total 8.6 mg/dL (8.5-10.1); Chloride 107 mmol/L (98-107); Creatinine, Serum 1.12 mg/dL (0.70-1.30); EST Glomerular Filtration Rate 69 mL/min (>60); Est Glom Filt Rate - Afr Amer 83 mL/min (>60); Glucose 83 mg/dL (74-106); Sodium Level 142 mmol/L (136-145)
== END | disposition home or self-care (01) ==
LOC: LAB 08:24
PROVIDERS: Family Provider Internal Medicine; PCP Internal Medicine; Referring Provider Urology; Visit Provider Urology
DX: N20.0 Calculus of kidney (principal)
CPT/HCPCS: 36415; 80048

== ENCOUNTER → 2019-02-02 | Outpatient (CLI) | payer MEDICARE, OTHER, SELFPAY ==
[2018-12-14 08:10] VITALS: BMI 35.4
[2019-02-02 11:27] LABS: Anion Gap 7 (5-15); BUN 17 mg/dL (7-18); Calcium,Total 9.3 mg/dL (8.5-10.1); Chloride 105 mmol/L (98-107); Creatinine, Serum 1.06 mg/dL (0.70-1.30); EST Glomerular Filtration Rate 73 mL/min (>60); Est Glom Filt Rate - Afr Amer 88 mL/min (>60); Glucose 103 mg/dL (74-106); Potassium 4.3 mmol/L (3.5-5.1); Sodium Level 141 mmol/L (136-145)
== END | disposition home or self-care (01) ==
LOC: LAB 10:03
PROVIDERS: Family Provider Internal Medicine; PCP Internal Medicine; Referring Provider Urology; Visit Provider Urology
DX: N20.0 Calculus of kidney (principal)
CPT/HCPCS: 36415; 80048

== ENCOUNTER → 2019-05-11 13:29 | Outpatient (CLI) | payer SELFPAY ==
[2019-04-24 10:33] VITALS: BMI 35.5
--- NOTE | 2019-05-11 13:34 | CT_ITS ---
STUDY: CARDIAC CALCIUM SCORING - CT CHEST REASON FOR EXAM: Male, 73 years old. Hypercholesterolemia RADIATION DOSAGE (If Supplied By Facility): CTDIvol = ( 12.19 ) mGy, DLP = ( 243.79 ) mGycm TECHNIQUE: Axial non-enhanced images were acquired through the heart for the sole purpose of measuring coronary artery calcium. Individualized dose optimization techniques were used for this CT. COMPARISON: None. FINDINGS: Please see patient's medical record for a personalized calcium score. There is dependent atelectasis noted in the lung bases. The visualized lungs are otherwise clear. The visualized soft tissues are within normal limits. CT/Limited Chest CT w/CCTA IMPRESSION: Please see patient's medical record for a personalized calcium score. Please go to: [email or web address] , for a description of the calculator. Electronically Signed: Du Villagomez, at 16:00 EDT Tel , Service support ,
[2019-05-11 13:50] VITALS: BP 124/75; PULSE 74; RESP 16; O2SAT 96; BMI 34.5
--- NOTE | 2019-05-11 17:41 | CA.SCORE ---
Calcium Scoring Date of Study:: 05/11/19 Coronary Calcium Scoring: High-resolution Computed Tomographic imaging of the chest was performed on 05/11/2019 with particular attention paid to the coronary arteries. Images from the examination were analyzed for the presence and extent of coronary artery calcification , using coronary calcium quantification software. The patient tolerated the procedure well and there were no complications. The results of the coronary calcification analysis are provided below. - Findings Left Main (LM): 231 Left Anterior Descending (LAD): 316 Left Circumflex (LCX): 320 Right Coronary Artery (RCA): 915 Total Agatston Score: 1,782 Percentile Ranking: Percentile rankin%: 90% of people of the same gender/similar age had the same/lower scores Calcium Scoring Interpretation: 0 No identifiable atherosclerotic plaque. Very low cardiovascular disease risk. <5% chance of presence coronary artery disease A Negative Examination 1-10 Minimal Plaque burden. Significant coronary artery disease very unlikely. 11-100 Mild plaque burden. Likely mild or minimal coronary atherosclerosis. 101-400 Moderate plaque burden Moderate non-obstructive coronary artery disease highly likely. Over 400 Extensive plaque burden. High likelihood of at least one significant coronary stenosis (>50% diameter) Calcium Score: >400 High likelihood of at least one significant coronary stenosis Conclusion: Continue cardiovascular risk factor evaluation care as deemed appropriate
== END ==
PROVIDERS: Family Provider Internal Medicine; PCP Internal Medicine; Referring Provider Internal Medicine; Visit Provider Internal Medicine
DX: E78.00 Pure hypercholesterolemia, unspecified (principal)
CPT/HCPCS: 75571; 76380

== ENCOUNTER 2019-06-08 07:00 | Day surgery (SDC) | payer MEDICARE, OTHER, SELFPAY ==
[2019-05-11 13:50] VITALS: BMI 34.5
[2019-05-19 11:37] LABS: Absolute Lymphocyte Count 0.84 X10^3/uL (0.83-4.51); Absolute Neutrophil Count 3.7 X10^3/uL (2.0-7.7); Basophil# 0.05 X10^3/uL; Basophil% 0.9 % (0-1); Eosinophil# 0.18 X10^3/uL; Eosinophils% 3.4 % (0-5); Hematocrit 49.8 % (40-54); Hemoglobin 15.6 g/dL (13.0-16.5); Lymphocyte # 0.84 X10^3/ul (4.0); Lymphocyte % 15.9 % (19-41); Mean Corp Hgb Conc 31.3 g/dL (32-36); Mean Corpuscular Hgb 25.7 pg (27.0-32.0); Mean Corpuscular Volume 81.9 fL (80-94); Mean Platelet Vol. 10.1 fl (6.2-12.0); Monocyte# 0.44 X10^3/uL; Monocyte% 8.3 % (0-10); NRBC Flagged by Analyzer 0 % (0-5); Neutrophil # 3.68 X10^3/uL (2.7-7.7); Neutrophil % 69.8 % (47-70); Platelet Count 148 K/mm3 (150-450); RBC Distribution Width CV 14.8 % (11.6-14.6); RBC Distribution Width SD 43.4 fl (35.1-43.9); Red Blood Count 6.08 M/mm3 (4.6-6.2); White Blood Count 5.3 K/mm3 (4.4-11.0)
[2019-05-19 12:06] LABS: Anion Gap 5 (5-15); BUN 17 mg/dL (7-18); BUN/Creat Ratio 14.9 RATIO (10-20); Calcium,Total 9.4 mg/dL (8.5-10.1); Chloride 106 mmol/L (98-107); Creatinine, Serum 1.14 mg/dL (0.70-1.30); EST Glomerular Filtration Rate 67 mL/min (>60); Est Glom Filt Rate - Afr Amer 81 mL/min (>60); Glucose 130 mg/dL (74-106); Sodium Level 141 mmol/L (136-145)
[2019-06-04 14:33] VITALS: BMI 35.5
--- NOTE | 2019-06-08 08:18 | EKG12_ITS ---
Test Reason : HEART CATH Blood Pressure : / mmHG Vent. Rate : 059 BPM Atrial Rate : 059 BPM P-R Int : 184 ms QRS Dur : 098 ms QT Int : 416 ms P-R-T Axes : 065 029 042 degrees QTc Int : 411 ms Sinus bradycardia Otherwise normal ECG Confirmed by TRISTAN MOYA, THANH ([id number]), image editor NANDINI MUNOZ ([id number]) on 06/12/2019 10:47:16 AM Referred By: Isai Serna Confirmed By:THANH HUDSON MD
--- NOTE | 2019-06-08 08:47 | HP.PCM_ITS ---
Problem List (1) Nonobstructive atherosclerosis of coronary artery Status: Chronic (2) Essential (primary) hypertension Status: Chronic History of Present Illness Date of Admission: 06/08/19 Chief Complaint: Abnormal calcium score NIKHIL DIAZ, is a 73 M who presents for a cardiac catheterization He is a gentleman with a history of hypertension, atrial flutter ablation in 2000 and in 1999 and presenting with atrial fibrillation. He was placed on anticoagulation cardioverted but did not maintain sinus rhythm and went back into atrial fibrillation. He underwent cryoablation of the pulmonary veins in 2016. Since then he has been doing well maintaining sinus rhythm. He denies any chest pain or shortness breath or paroxysmal nocturnal dyspnea pedal edema he has been compliant with his medications and anticoagulation. He has not had any paroxysms. His physical exam today demonstrates clear lung harman regular rate and rhythm and no pedal edema his blood pressure is under excellent control. Intake Vital Signs 04/24/19 Height 6 ft 04/24/19 Weight: 262 lb 04/24/19 Body Mass Index (BMI) 35.5 04/24/19 Blood Pressure 115/82 H 04/24/19 Blood Pressure Location Lt brachial 04/24/19 Blood Pressure Position Sitting 04/24/19 Respiratory Rate 18 04/24/19 Pulse Rate 68 04/24/19 Pulse Source Monitor 04/24/19 Pulse Ox 95 Intake Visit Reasons: 1 Y FU (we r/s from 05-01) Companion Caregiver Required: No Accompanied by: none Is patient in pain?: No Allergies No Known Allergies Allergy (Verified 04/24/19 10:34) Medications Atorvastatin Calcium [Lipitor] 20 mg PO QHS 03/02/16 [History Confirmed 04/24/19] Citalopram Hydrobromide [Citalopram HBr] 40 mg PO DAILY 03/02/16 [History Confirmed 04/24/19] Fenofibrate [Lofibra] 160 mg PO DAILY 03/02/16 [History Confirmed 04/24/19] Tamsulosin HCl [Flomax] 0.4 mg PO DAILY 03/02/16 [History Confirmed 04/24/19] Amlodipine [Norvasc] 5 mg PO DAILY 08/03/16 [History Confirmed 04/24/19] Valsartan [Diovan] 320 mg PO DAILY 08/06/16 [History Confirmed 04/24/19] apixaban 5 mg tablet 5 mg PO BID 10/07/17 [History Confirmed 04/24/19] aspirin 81 mg tablet,delayed release 81 mg PO QDAY tab 10/07/17 [History Confirmed 04/24/19] [facility] Medical History Essential (primary) hypertension (Chronic) History of atrial flutter (Chronic) Hyperlipidemia (Chronic) Cardiomyopathy in other diseases classified elsewhere (Chronic) Paroxysmal atrial fibrillation (Chronic) Abnormal chest CT (Chronic) Prostate cancer (Resolved) Syncope and collapse (Resolved) Abnormal chest CT (Inactive) Abnormal electrocardiogram (Inactive) Surgical History History of cardiac radiofrequency ablation (RFA) (Resolved 11/01/16) History of right knee surgery (Chronic) History of tonsillectomy (Chronic) History of varicose vein ligation (Chronic) History of cardioversion (Resolved 08/06/16) Family History Father CVA (cerebral vascular accident) Parkinsons disease Mother Hypertension Brother CAD (coronary artery disease) Stented coronary artery Social History (Updated 04/24/19 @ 11:04 by Isai Serna MD) Smoking Status: Former smoker ROS Const Const: Negative for fatigue, weakness, headache(s), frequent falls, night sweats, daytime sleepiness or excessive sweating Eyes Eyes: Negative for blind spots, loss of peripheral vision, transient loss of vision, blurry vision or double vision ENT ENT: Negative for headache(s), dizziness, Nosebleed/epistaxis, balance problems, lip swelling or tongue swelling Cardio Chest Pain: No Palpitations: No Edema: None Muscle aches with walking: None Resp Respiratory: Negative for SOB with activity, SOB at rest, SOB orthopnea\SOB lying down, Cough or paroxysmal nocturnal dyspnea GI GI: Negative nausea, vomiting, heartburn, bright, red blood in stools or black,tarry stools : Negative for hematuria Musc Musc: Negative for muscle aches/ myalgia, muscle weakness, joint pain or balance problems Skin Skin: Negative non-healing lesions, rash or unusual bruising Neuro Neuro: Negative for dizziness, lightheadedness, orthostatic symptoms, frequent falls, headache(s), weakness, blurry vision, double vision or lack of coordination Yaw Hematologic/Lymphatic: Negative for easy bleeding or easy bruising Endo Endo: Negative for fatigue, cold intolerance, heat intolerance, excessive sweating, increased thirst/drinking or hair loss Psych Psych: Negative for anxiety or depression Allergy Allergy/Immunology: Negative for throat swelling, Negative for tongue swelling, Negative for hives, Negative for rash, Negative for lip swelling Cardiology Exam Const Appearance: cooperative, healthy appearing, no acute distress, well developed and well groomed Nutritional Appearance: average body habitus and well nourished Orientation: alert, awake and oriented x3 Head Head: normal to inspection, normocephalic and atraumatic Ears: hearing grossly normal bilaterally and external ears normal Nose: external nose normal, nares normal, nasal mucous membranes and turbinates normal, septum normal, no nasal discharge Face and Sinus: face symmetric Mouth: oral mucosae normal, tongue normal, oropharynx normal and moist mucous membranes Teeth and gingiva: dentition normal Throat: posterior oropharynx normal, tonsils normal and uvula midline Eyes General: appearance normal, both eyes and all related structures Eyelids: eyelids normal Conjunctivae: conjunctivae normal Pupils: PERRL, normal by confrontation and accommodation normal EOM: EOM intact bilaterally Neck Neck: normal visual inspection, trachea midline and no JVD JVD: +5 Carotids: normal carotid upstroke and bounding pulses Chest Chest inspection: normal inspection of the chest, symmetric chest movement and normal respiratory effort Auscultation: Bilateral: Clear to Auscultation Cardio Palpation: normal PMI Rate: regular rate Rhythm: regular rhythm Heart sounds: S1 normal, S2 normal and normal, physiologic split S2; negative rub, gallop or murmur GI GI: normal to inspection, soft, no hepatosplenomegaly and bowel sounds present Neuro General: alert, awake, oriented x3, gait normal, moves all extremities and no focal sensory deficit Skin Skin: no rashes or lesions noted Extremities Pulses: Normal: Right Femoral Pulse, Left Femoral Pulse, Right Dorsalis Pedis Pulse, Left Dorsalis Pedis Pulse, Right Posterior Tibial Pulse, Left Posterior Tibial Pulse, Right Radial Pulse, Left Radial Pulse Lower Extremity Edema: None: Bilateral Musculoskel Musculoskeletal: No joint tenderness Psych Psychological: normal affect Assessment & Plan 1. Essential (primary) hypertension I10 Plan He does have a history of hypertension which is well-controlled on the current medical therapy I would not recommend that we make any changes at this particular time. Orders Orders: CCTA Calcium Scoring 2 Weeks 2. Paroxysmal atrial fibrillation I48.0 Plan He has had previous histories of paroxysmal atrial fibrillation. His chads score is 2. He has been ablated for over a year. He has expressed interest in potentially getting off the apixaban. I like to see him in 6 months repeat an EKG and if he is maintaining sinus rhythm and has not had any arrhythmias we may be able to take him off. Orders Orders: CCTA Calcium Scoring 2 Weeks 3. Pure hypercholesterolemia E78.00 Plan He does have a history of hyperlipidemia and he tells me that you have been obtaining his lipid profile through your office. He does have risk factors with hypertension hyperlipidemia and obesity and he may be a candidate for a coronary calcium CT. Depending on the results of that further recommendations will be made. Calcium score was noted to be markedly elevated and therefore he is being scheduled for cardiac catheterization after extensive discussion with the patient. Orders Orders: CCTA Calcium Scoring 2 Weeks The procedure has been discussed with the patient the risk benefits alternatives he understands and agrees to proceed. Past Medical History Allergies/Adverse Reactions: Allergies No Known Allergies Allergy (Verified 04/24/19 10:34) Home Medications: Ambulatory Orders Medication Instructions Recorded Atorvastatin Calcium [Lipitor] 20 mg PO QHS 03/02/16 Citalopram Hydrobromide 40 mg PO DAILY 03/02/16 [Citalopram HBr] Fenofibrate [Lofibra] 160 mg PO DAILY 03/02/16 Tamsulosin HCl [Flomax] 0.4 mg PO DAILY 03/02/16 Amlodipine [Norvasc] 5 mg PO DAILY 08/03/16 Valsartan [Diovan] 320 mg PO DAILY 08/06/16 apixaban 5 mg tablet 5 mg PO BID 10/07/17 aspirin 81 mg tablet,delayed 81 mg PO QDAY tab 10/07/17 release Past Medical History (Chronic Problems): Chronic Problems (Last Updated 06/08/19 @ 10:44 by Isha Dillard) Nonobstructive atherosclerosis of coronary artery (Chronic) Essential (primary) hypertension (Chronic) History of atrial flutter (Chronic) Hyperlipidemia (Chronic) Cardiomyopathy in other diseases classified elsewhere (Chronic) EF 47% per echo 07/06/16 Paroxysmal atrial fibrillation (Chronic) Surgical History: no surgical history - *Family History Maternal Family History: Family History (Last Reviewed 04/24/19 @ 10:55 by Isai Serna MD) Father CVA (cerebral vascular accident) Parkinsons disease Mother Hypertension Brother CAD (coronary artery disease) Stented coronary artery Smoking Status: Former smoker Alcohol: None Drugs: None Review of Systems - Review of Systems General: Denies: Fever, Night Sweats, Fatigue Cardiovascular: Denies: Chest Discomfort, Shortness of Breath, Orthopnea, PND, Peripheral Edema, Palpitations, Lightheadedness, Dizziness, Near Syncope, Syncope Respiratory: Denies: Cough, Sputum Production, Hemoptysis Gastrointestinal: Denies: Hematemesis, Hematochezia, Melena Genitourinary: Denies: Dysuria, Hematuria Skin: Denies: Rash Subjectve: pt fine Objective: Weight: 262 lb Body Mass Index (BMI) 35.5 General: Awake, Alert, Oriented x 3 HEENT: PERRL, EOMI, Sclera Non Icteric Neck: Supple, Good ROM, No Lymph Node Enlargement Lungs: Clear to auscultation Cardiovascular: Regular Rhythm, Normal S1, Normal S2, No Murmurs, No Rubs, No Gallops VTE Information - Inpt Only VTE Present on Admission: No VTE Mechan Device Prophylaxis: None VTE Pharm Prophylaxis ordered?: No Reason prophylaxis not ordered:: Treatment Not Indicated Rhythm: EKG: ECHO: Stress Test: Cardiac Cath: PCI: CT Surgery: Holter monitor: EPS: PPM: CXR: Chest CT Scan: Assessment/Plan 1. CAD
--- NOTE | 2019-06-08 09:19 | CL.D_ITS ---
Patient Name: NIKHIL DIAZ Study Date: 06/08/2019 Performing: Isai Serna MD Ht: 72.04 inches 183 cm : 1945 Wt: 262.35 lbs 119 kg Age: 73 Gender: male BSA: 2.39 PROCEDURE(S) PERFORMED SG13-VAN/COR/LV CLINICAL PROFILE AND INDICATIONS Indications: Suspected CAD Heart Failure: None Stress/Imaging Date: 05/06/17 CAD Presentations: No Sxs, no angina. CONCLUSIONS Non obstructive coronary arteries Coronary calcium noted RECOMMENDATIONS Medical therapy DESCRIPTION OF PROCEDURE The patient arrived to the procedure lab. The risks and benefits of the procedure as well as a full d escription of our services here and current unavailability of surgical backup were fully explained to the patient and/or their significant other prior to the catheterization. The Timeout was completed, verifying the correct patient and procedure. The patient's procedural site was prepped and draped in the usual fashion. Local anesthetic was given subcutaneously to right radial region with Lidocaine 2% . Using a modified Seldinger technique, arterial access was obtained via the right radial artery, a 6 Fr sheath was inserted. Left Coronary Artery selective angiography was performed in multiple views u sing a 5 Fr. 4.0 [place] catheter. Right Coronary Artery selective angiography was then performed in mu ltiple views using a 5 Fr. 4.0 [place] catheter. Left Ventriculography was performed in CAMPBELL projection using a 5 Fr. [place] catheter. LV to AO pullback pressures were then recorded.The arterial sheath was pulled and a TR Band was applied for hemostasis with 12cc of air placed in the TR Band CORONARY ANGIOGRAPHY DOMINANCE: Right Dominant LEFT HEART ASSESSMENT Left Ventricular Ejection Fraction: by LV Gram 60 % Normal LV wall motion Normal Left Ventricular systolic function LEFT MAIN: Angiographically normal LEFT ANTERIOR DESCENDING ARTERY: PROX LAD: Mild luminal irregularities less than 30% CIRCUMFLEX ARTERY: No significant disease noted RIGHT CORONARY ARTERY: No significant disease noted COMPLICATIONS No Complications PROCEDURE MEDICATIONS Versed 1 mg IV Versed 1 mg IV Fentanyl 50 mcg IV Oxygen: 2 L/min via nasal cannula Heparin diluted in 23cc Heparinized saline. Patient given 10cc IA of this solution. 06/08/2019 08:59 :11 Verapamil 2.5mg, Ntg 100mcgs, 2000 units of Heparin diluted in 23cc Heparinized saline. Patient give n 10cc IA of this solution. 06/08/2019 08:59:11 SUMMARY OF HEMODYNAMIC DATA Time AIR REST ECG 07:31:42 AO 95/68 (83) SA 09:01:21 LV 100/3, 8 09:10:09 LVp 96/11, 13 09:10:52 AOp 99/64 (81) 09:10:57 Signed By Isai Serna MD On 06/08/2019 09:18:13 Isai Serna MD
== END 2019-06-08 12:30 | disposition home or self-care (01) ==
LOC: CLSP 07:02
PROVIDERS: Family Provider Internal Medicine; PCP Internal Medicine; Referring Provider Internal Medicine Cardiovascular Disease; Visit Provider Internal Medicine Cardiovascular Disease
DX: I25.10 Atherosclerotic heart disease of native coronary artery without angina pectoris (principal); I48.0 Paroxysmal atrial fibrillation; I43 Cardiomyopathy in diseases classified elsewhere; I10 Essential (primary) hypertension; E78.00 Pure hypercholesterolemia, unspecified; Z79.01 Long term (current) use of anticoagulants; Z79.82 Long term (current) use of aspirin; Z79.899 Other long term (current) drug therapy; Z87.891 Personal history of nicotine dependence
CPT/HCPCS: 36415; 80048; 85025; 93005; 93458; 99152; 99153; J7040; C1769; C1894; Q9967

== ENCOUNTER → 2020-02-15 09:19 | Outpatient (CLI) | payer MEDICARE, OTHER, SELFPAY ==
[2019-06-04 14:33] VITALS: BMI 35.5
--- NOTE | 2020-02-15 09:45 | RAD_ITS ---
STUDY: X-RAY - ABDOMEN/PELVIS REASON FOR EXAM: Male, 74 years old. ROUTINE CHECKUP FOR KIDNEY STONES. PT HAS HX OF STONES. TECHNIQUE: Single AP view of the abdomen / pelvis. COMPARISON: CT scan 12-12-18. FINDINGS: Normal visualized lung bases. Exam limited by extensive bowel contents overlying the renal beds. Small stones cannot be excluded. No definite stones are seen. In the pelvis, numerous peritoneal tacks and radiotherapy seeds in prostate also interfere with determining small stones. There is an unremarkable bowel gas pattern. There is no demonstrated free abdominal air. The visualized liver, spleen and kidneys are grossly normal in size and morphology. Normal soft tissue structures. There are diffuse degenerative changes of the visualized lumbar spine. RAD/Abdomen Single View IMPRESSION: There are no definite renal or ureteral stones, but the exam is limited as above. Electronically Signed: Rustam Lagos MD at 19:49 EDT , Service support ,
[2020-02-15 12:43] LABS: PSA,Total- Diagnostic 0.61 ng/mL (0.0-4.0)
[2020-02-15 13:44] LABS: Bacteria 0 SEEN /hpf (None Seen); Mucous, Urine 0 SEEN /hpf (<or=2+)
[2020-02-15 14:03] LABS: Color, Urine Yellow (Yellow); Glucose, Dipstick Normal (Normal); Ketone-Dipstick Negative (Negative); Leukocyte Esterase-Dipstick 100 /ul (Negative); Nitrite-Dipstick Negative (Negative); Occult Blood-Urine 150 /ul (Negative); Protein-Dipstick Negative (Negative); Specific Gravity, Urine 1.005 (1.002-1.030); Urine Bilirubin Dipstick Negative (Negative); Urine Clarity Clear (Clear); Urine Urobilinogen Normal (Normal)
[2020-02-15 14:19] LABS: Red Blood Cells-Urine 10-25 SEEN /hpf (0-5); Squamous Epithelial Cells - UA 0-5 SEEN /hpf (0-5); White Blood Cells 10-25 SEEN /hpf (0-5)
== END ==
PROVIDERS: Nurse Practitioner Adult Health; PCP Internal Medicine; Referring Provider Urology; Visit Provider Urology
DX: N20.0 Calculus of kidney (principal); Z85.46 Personal history of malignant neoplasm of prostate; R31.9 Hematuria, unspecified
CPT/HCPCS: 36415; 74018; 81001; 84153; 87077; 87086; 87088; 87186

== ENCOUNTER → 2020-02-26 09:42 | Outpatient (CLI) | payer MEDICARE, OTHER, SELFPAY ==
[2019-06-04 14:33] VITALS: BMI 35.5
--- NOTE | 2020-02-26 10:00 | RAD_ITS ---
STUDY: X-RAY - LEFT KNEE REASON FOR EXAM: Male, 74 years old. PAIN TECHNIQUE: 4 view(s) of the knee. COMPARISON: None. FINDINGS: Normal visualized distal femur. Normal visualized proximal tibia and fibula. Normal proximal tibiofibular articulation. There is mild degenerative arthrosis of the medial femorotibial compartment. There is mild degenerative arthrosis of the lateral femorotibial compartment. There is mild degenerative arthrosis of the patellofemoral articulation. The soft tissue structures are unremarkable. RAD/Knee 4 or More Views IMPRESSION: Degenerative arthrosis. Electronically Signed: Dawood Soto MD at 7:21 EDT Tel , Service support ,
== END ==
PROVIDERS: PCP Internal Medicine; Referring Provider Internal Medicine; Visit Provider Internal Medicine
DX: M25.562 Pain in left knee (principal); M25.561 Pain in right knee
CPT/HCPCS: 73564

== ENCOUNTER → 2020-10-18 16:19 | Outpatient (CLI) | payer MEDICARE, OTHER, SELFPAY ==
[2020-03-11 10:23] VITALS: BMI 32.8
--- NOTE | 2020-10-18 16:25 | RAD_ITS ---
INDICATION: BI KNEE PAIN EXAMINATION/TECHNIQUE: X-RAY - LEFT XR Knee Complete 4 Views or More COMPARISON: None. FINDINGS: No acute fracture or malalignment. Moderate, medial compartment predominant, tricompartmental joint space narrowing and osteophytosis. No joint effusion. Vascular calcifications. RAD/Knee 4 or More Views IMPRESSION: Moderate, medial compartment predominant, tricompartmental degenerative arthrosis of the knee. Electronically Signed: Rene Vaca MD at 1:54 EDT Tel , Service support ,
--- NOTE | 2020-10-18 17:05 | RAD_ITS ---
STUDY: X-RAY - RIGHT KNEE REASON FOR EXAM: Male, 75 years old. BI KNEE PAIN TECHNIQUE: 4 view(s) of the knee. COMPARISON: None. FINDINGS: Normal visualized distal femur. Normal visualized proximal tibia and fibula. Normal proximal tibiofibular articulation. There is moderate degenerative arthrosis of the medial femorotibial compartment with moderate joint space narrowing. Normal lateral femorotibial compartment. Normal patellofemoral articulation. Small joint effusion. Atherosclerotic calcification. RAD/Knee 4 or More Views IMPRESSION: Degenerative arthrosis. Small joint effusion. Electronically Signed: Andre Trinidad MD at 9:40 EDT , Service support ,
== END ==
PROVIDERS: PCP Internal Medicine; Referring Provider Internal Medicine; Visit Provider Internal Medicine
DX: M25.561 Pain in right knee (principal); M25.562 Pain in left knee
CPT/HCPCS: 73564

== ENCOUNTER → 2020-11-23 15:01 | Outpatient (CLI) | payer MEDICARE, OTHER, SELFPAY ==
[2020-03-11 10:23] VITALS: BMI 32.8
[2020-11-23 17:48] LABS: POSITIVE COUNT YES
[2020-11-23 17:57] LABS: Platelet Count 101 K/mm3 (150-450)
== END ==
PROVIDERS: PCP Internal Medicine; Referring Provider Internal Medicine; Visit Provider Internal Medicine
DX: D69.6 Thrombocytopenia, unspecified (principal)
CPT/HCPCS: 36415; 85049

== ENCOUNTER → 2020-12-08 09:09 | Outpatient (CLI) | payer MEDICARE, OTHER, SELFPAY ==
[2020-03-11 10:23] VITALS: BMI 32.8
[2020-12-08 10:07] LABS: Platelet Count 177 K/mm3 (150-450)
== END ==
PROVIDERS: PCP Internal Medicine; Referring Provider Internal Medicine; Visit Provider Internal Medicine
DX: D69.6 Thrombocytopenia, unspecified (principal)
CPT/HCPCS: 36415; 85049

== ENCOUNTER 2020-12-23 15:30 | Outpatient (RCR) | payer MEDICARE, OTHER, SELFPAY ==
[2020-03-11 10:23] VITALS: BMI 32.8
--- NOTE | 2020-12-02 11:18 | HP.PTEVAL ---
Patient's Visit Information NIKHIL DIAZ is a 75 year old M referred to Physical Therapy by Dr. Edna Reynaga MD with a diagnosis of BILATERAL KNEE PAIN. Date of Evaluation: 12/02/20 Physical Therapist: Huseyin Lindsey PT, Cert MDT, OCS - Visit Plan Frequency: 2x /Week Duration: 4 Weeks Plan: PT INTERVENTIONS FLEXIBILITY ,ROM ,PRE'S QUADS/HAMS/HIP ,BIKE AND FUNCTIONAL STRENGTHENING - Subjective This 75 y/o male presents to physical therapy with bilateral knee pain.Patient has had knee pain right > left for several months, Noticed pain in walking a lot on treadmill. Patient seen DR gill x-rays showed DJD and was given cortizone which helped left > right . Patient aggravating squatting,kneeling ,sitting to get up and stairs. Alleviating factors injection ,less treadmill. Patient has run 5k's in past. Denies parathesia/tingling.Location of pain is located medial knee described as ache. Patient sleeping okay at night. Patient is relatively active . Patient goals to get stronger and less pain. Patient has no h/o trauma. No prior PT. Patient pain affects QOL and function. SOCIAL: . 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 GAIT: reciprocal pattern. NEURO: intact. PALPATION: tender medial knee. FLEXIBILITY: hams mid tight. AROM; supine knee flexion 10-130 degrees right,left 5-140 degrees. MMT: QUADS 4-/5,HAMS 4/5,HIP FLEXION 4-/5,HIP ABD 4-/5,ANKLE 5/5. STAIRS: alternating one step at time - Special Tests R Knee Anterior Drawer - ACL: Negative R Knee Valgus - MCL: Negative R Knee Varus - LCL: Negative R Knee Patellar Apprehension - PFS: Negative R Knee Patellar Grind - PFS: Negative L Knee Valgus - MCL: Negative L Knee Varus - LCL: Negative L Knee Patellar Apprehension - PFS: Negative L Knee Patellar Grind - PFS: Negative - Goals Goal 1:: I with HEP Goal Time Frame: 4-6 Weeks Goal 2:: Decrease pain bilateral knees by 60% o> to improve function Goal Time Frame: 4-6 Weeks Goal 3:: Patient to increase knee flexion 5-10 degrees or > to improve function with stairs Goal Time Frame: 4-6 Weeks Goal 4:: Patient increase strength quads/hams/hip 4/5 to improve function with ADLS. Goal Time Frame: 4-6 Weeks Goal 5:: Patient improve LFES score by 5-10 points or > to improve function. Goal Time Frame: 4-6 Weeks - Rehabilitation Potential Physical Therapy Diagnosis: This 75 y/o male presents with knee pain from DJD right > left with decrease ROM ,strength impairs walking ,squatting and kneeling thus benefit from skilled PT Rehabilitation Potential: Good - Anticipated Interventions Patient/Client Instruction: Educate patient on: Condition, Plan of Care For the Purpose of:: To decrease pain, To increase ROM, To improve muscle performance and motor function, To improve ability to perform ADL's, To increase tolerance to activity/condition/position, To improve performance and independence with ADL's, To improve ability of physical actions for home/community/work/leisure, To improve health of tissue, To decrease soft tissue restriction, To increase flexibility/ROM, To prevent re-injury Therapeutic Exercise to Include: Strength training, Flexibilty training, Passive ROM, Active ROM Comment: BLE For the Purpose of:: To decrease pain, To increase ROM, To improve muscle performance and motor function, To improve ability to perform ADL's, To increase tolerance to activity/condition/position, To improve performance and independence with ADL's, To improve ability of physical actions for home/community/work/leisure, To improve health of tissue, To decrease soft tissue restriction, To increase flexibility/ROM Thank you for the opportunity to evaluate your patient. For Medicare and Medicare HMO plans, please review the plan of care and approve it. It will need to be FAXED BACK to us at [phone] for Medicare purposes. For Medicare only, by signing this I certify the plan of care. Please let me know if there are questions or concerns regarding this plan of care. Physician Signature: Date:
--- NOTE | 2021-04-26 08:28 | HP.PTDCNRP_ITS ---
NIKHIL DIAZ was seen in my office for initial evaluation on 12/02/20. The following Plan of Care was established for this patient: Initial Frequency: 2x /Week Initial Duration: 4 Weeks Patient/Client Instruction: Educate patient on: Condition, Plan of Care For the Purpose of:: To decrease pain, To increase ROM, To improve muscle performance and motor function, To improve ability to perform ADL's, To increase tolerance to activity/condition/position, To improve performance and independence with ADL's, To improve ability of physical actions for home/community/work/leisure, To improve health of tissue, To decrease soft tissue restriction, To increase flexibility/ROM, To prevent re-injury Therapeutic Exercise to Include: Strength training, Flexibilty training, Passive ROM, Active ROM For the Purpose of:: To decrease pain, To increase ROM, To improve muscle performance and motor function, To improve ability to perform ADL's, To increase tolerance to activity/condition/position, To improve performance and independen ce with ADL's, To improve ability of physical actions for home/community/work/leisure, To improve health of tissue, To decrease soft tissue restriction, To increase flexibility/ROM This patient was last seen in our office . Pertinent comments regarding their Physical therapy will appear below: Patient seen for bilateral knee pain focusing on ROM ,strengthening doing well thus is d/c At this point I will be discontinuing this patient from physical therapy. I would be happy to see this patient again in the future if found appropriate by the physician. Thank you! Huseyin Lindsey, PT, Cert MDT, OCS Balance/Gait/Functional tests - Balance/Special Test Scores Lower Extremity Functional Score: 62
== END 2020-12-23 19:00 | disposition home or self-care (01) ==
LOC: PT 15:30
PROVIDERS: PCP Internal Medicine; Referring Provider Internal Medicine; Visit Provider Internal Medicine
DX: M25.562 Pain in left knee (principal); M25.561 Pain in right knee
CPT/HCPCS: 97110; 97162

== ENCOUNTER → 2021-03-20 10:40 | Outpatient (CLI) | payer MEDICARE, OTHER, SELFPAY | PROVIDERS: PCP Internal Medicine; Referring Provider Internal Medicine; Visit Provider Internal Medicine | DX: Z20.822 Contact with and (suspected) exposure to COVID-19 (principal) | CPT/HCPCS: 87635; U0005; U0003 ==

== ENCOUNTER → 2021-05-02 08:02 | Outpatient (REF) | payer SELFPAY | LOC: CVS 08:02 | PROVIDERS: PCP Internal Medicine; Referring Provider Internal Medicine; Visit Provider Internal Medicine | DX: Z00.00 Encounter for general adult medical examination without abnormal findings (principal) ==

== ENCOUNTER → 2021-06-09 12:08 | Outpatient (CLI) | payer MEDICARE, OTHER, SELFPAY ==
--- NOTE | 2021-06-09 12:56 | CT_ITS ---
EXAM: CT LEFT LOWER EXTREMITY WITHOUT INTRAVENOUS CONTRAST CLINICAL INDICATION: LFT KNEE PAIN TECHNIQUE: Helically acquired images were obtained of the left lower extremity without intravenous contrast. 2-D reformats were performed by the technologist. This CT exam was performed using one or more of the following dose reduction techniques: automated exposure control, adjustment of the mA and/or kV according to patient size, and/or use of iterative reconstruction technique. This report was created using [employer] technology. COMPARISON: None. FINDINGS: BONES/JOINTS: Degenerative narrowing of the medial compartment of the knee. Mild degenerative narrowing of the medial compartment of the left knee. Very small joint effusion of the knee. Mild degenerative arthrosis of the tibiotalar articulation. No acute fracture. No subluxation. Normal alignment. SOFT TISSUES: Unremarkable. No soft tissue swelling or gas. No radiopaque foreign body. VASCULATURE: Atherosclerosis of the femoral, popliteal and infrapopliteal arteries. REPRODUCTIVE: Prostate metallic seed implants. CT/Extremity Lower without Contra IMPRESSION: 1. No acute findings in the left lower extremity. 2. Small joint effusion of the knee. Electronically Signed: David Acosta MD ([place]) at 15:13 EST , Service support ,
--- NOTE | 2021-06-09 12:56 | CT_ITS ---
EXAM: CT RIGHT LOWER EXTREMITY WITHOUT INTRAVENOUS CONTRAST CLINICAL INDICATION: RT KNEE PAIN TECHNIQUE: Helically acquired images were obtained of the right lower extremity without intravenous contrast. 2-D reformats were performed by the technologist. This CT exam was performed using one or more of the following dose reduction techniques: automated exposure control, adjustment of the mA and/or kV according to patient size, and/or use of iterative reconstruction technique. This report was created using [employer] report [employer] technology. COMPARISON: None. FINDINGS: BONES/JOINTS: Degenerative narrowing and marginal spur formation involving the medial compartment of the knee. Right hip is normally aligned. Mild degenerative arthrosis of the tibiotalar articulation. Old avulsion fragment (well-corticated) adjacent to the medial malleolus. No acute fracture. SOFT TISSUES: Unremarkable. No soft tissue swelling or gas. No radiopaque foreign body. VASCULATURE: Atherosclerosis of the femoral, popliteal and infrapopliteal arteries. REPRODUCTIVE: Prostate seed implants. CT/Extremity Lower without Contra IMPRESSION: No fracture or destructive bony process. Electronically Signed: David Acosta MD ([place]) at 15:11 EST , Service support ,
--- NOTE | 2021-06-09 13:38 | EKG12_ITS ---
Test Reason : PREOP Blood Pressure : / mmHG Vent. Rate : 068 BPM Atrial Rate : 068 BPM P-R Int : 186 ms QRS Dur : 086 ms QT Int : 396 ms P-R-T Axes : 084 055 055 degrees QTc Int : 421 ms Normal sinus rhythm Normal ECG When compared with ECG of 08-JUN-2019 08:18, No significant change was found Confirmed by CHARLES MOYA, EZRA ([id number]), film editor supervisor JUDY BALTAZAR ([id number]) on 06/13/2021 1:27:46 PM Referred By: Du Toribio Confirmed By:EZRA SOTO MD
== END ==
PROVIDERS: PCP Internal Medicine; Referring Provider Specialist; Visit Provider Specialist
DX: M21.162 Varus deformity, not elsewhere classified, left knee (principal); M21.161 Varus deformity, not elsewhere classified, right knee; M25.562 Pain in left knee; M25.561 Pain in right knee
CPT/HCPCS: 73700; 93005

== ENCOUNTER → 2021-06-22 15:40 | Outpatient (CLI) | payer MEDICARE, OTHER, SELFPAY ==
--- NOTE | 2021-06-22 11:00 | KNEE_PTH ---
PATIENT: NIKHIL DIAZ LOC: [facility] U#:[id number] AGE/SX: 79/M ROOM: RE06/22/[address]: Dr. Du Toribio MD : 1945 BED: DIS: SPEC #: [id number] RECD: 06/22/21 15:13 STATUS: JONNA JESSICA #: [id number] KARUNA: 06/22/21 11:[address]: Du Toribio DEPT: SURGICAL PATHOLOGY RECD BY: Natalie Jaeger ENTERED: 06/23/21 08:37 SP TYPE: TOTAL KNEE OTHR DR: Dr. Edna Reynaga MD [facility] Tissues: Knee, NOS Procedures: Decalcification bone/plaque Surgery Specimen Level IV HEADER OPERATION: Robotic-assisted right total knee replacement PRE-OP DIAGNOSIS: Moderate to severe right knee osteoarthritis TISSUE SUBMITTED: Bone right knee MICROSCOPIC DIAGNOSIS Bone and tissue of right knee, total knee resection: Consistent with degenerative joint disease. Mild synovial hyperplasia. AM:sonia 06/28/2021 MICROSCOPIC DESCRIPTION Slides are reviewed. GROSS DESCRIPTION Received is one container designated bone and soft tissue right knee. The specimen consists of multiple fragments of martinez-yellow bone measuring in aggregate 10 x 9 x 3 cm. Also in the specimen container are multiple fragments of yellow-white soft tissue measuring in aggregate 9 x 7 x 3 cm. A number of bony fragments contain articular surfaces consistent with tibial plateau and femoral condyle and displaying prominent osteophyte formation and bone erosion. 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 / SJ:sonia 06/23/21 TC:5 CPT: 13848, 23211
== END ==
PROVIDERS: PCP Internal Medicine; Visit Provider Specialist
DX: M17.11 Unilateral primary osteoarthritis, right knee (principal)
CPT/HCPCS: 88305; 88311

== ENCOUNTER 2021-07-25 16:15 | Outpatient (CLI) | payer MEDICARE, OTHER, SELFPAY ==
--- NOTE | 2021-07-25 16:20 | RAD_ITS ---
STUDY: X-RAY CHEST REASON FOR EXAM: Male, 76 years old. CHEST PAIN TECHNIQUE: PA and lateral views of the chest. COMPARISON: 12/13/2018 FINDINGS: The lungs are clear and expanded. There is no demonstrated pleural abnormality. Normal size heart. Normal mediastinum and stefani. Normal visualized pulmonary arteries. There is atherosclerotic tortuosity of the aortic arch and descending thoracic aorta. There are diffuse degenerative changes of the visualized thoracic spine. Normal visualized ribs, clavicles, and shoulders. There is no demonstrated abnormality of the visualized soft tissue structures of the upper abdomen. RAD/Chest PA and Lateral IMPRESSION: No acute cardiopulmonary process. Electronically Signed: David Acosta MD ([place]) at 16:31 EST , Service support ,
[2021-07-25 18:01] LABS: Absolute Lymphocyte Count 1.04 X10^3/uL (0.83-4.51); Absolute Neutrophil Count 5.3 X10^3/uL (2.0-7.7); Basophil# 0.04 X10^3/uL; Basophil% 0.5 % (0-1); Eosinophil# 0.28 X10^3/uL; Eosinophils% 3.8 % (0-5); Hematocrit 44.3 % (40-54); Hemoglobin 13.7 g/dL (13.0-16.5); Lymphocyte # 1.04 X10^3/ul (0.83-4.51); Mean Corp Hgb Conc 30.9 g/dL (32-36); Mean Corpuscular Hgb 25.2 pg (27.0-32.0); Mean Corpuscular Volume 81.6 fL (80-94); Mean Platelet Vol. 10.1 fl (6.2-12.0); Monocyte# 0.65 X10^3/uL; Monocyte% 8.8 % (0-10); NRBC Flagged by Analyzer 0 % (0-5); Neutrophil # 5.34 X10^3/uL (2.7-7.7); Platelet Count 229 K/mm3 (150-450); RBC Distribution Width CV 14.9 % (11.6-14.6); RBC Distribution Width SD 44.1 fl (35.1-43.9); Red Blood Count 5.43 M/mm3 (4.6-6.2); White Blood Count 7.4 K/mm3 (4.4-11.0)
[2021-07-25 18:33] LABS: ALB/GLOB Ratio 1.2 RATIO (0.9-2.4); AST(SGOT) 14 U/L (15-37); Alanine Aminotransfer ALT/SGPT 21 U/L (16-61); Albumin, Serum 3.7 g/dL (3.2-5.0); Alkaline Phosphatase 114 U/L (45-117); Anion Gap 9 (5-15); BUN 21 mg/dL (7-18); BUN/Creat Ratio 20.4 RATIO (10-20); Calcium,Total 9.3 mg/dL (8.5-10.1); Chloride 104 mmol/L (98-107); Creatinine, Serum 1.03 mg/dL (0.70-1.30); EST Glomerular Filtration Rate 75 mL/min (>60); Est Glom Filt Rate - Afr Amer 91 mL/min (>60); Globulin 3.1 g/dL (2.2-4.2); Glucose 98 mg/dL (74-106); Potassium 3.9 mmol/L (3.5-5.1); Protein, Total 6.8 g/dL (6.4-8.2); Sodium Level 140 mmol/L (136-145); Troponin-I HS 6 pg/mL (3.0-78.0)
== END 2021-07-25 23:59 | disposition short-term general hospital (02) ==
LOC: MTLAB 16:18
PROVIDERS: PCP Internal Medicine; Referring Provider Internal Medicine; Visit Provider Internal Medicine
DX: R07.89 Other chest pain (principal)
CPT/HCPCS: 36415; 71046; 80053; 83880; 84484; 85025

== ENCOUNTER 2021-07-26 07:37 | Outpatient (CLI) | payer MEDICARE, OTHER, SELFPAY ==
[2021-07-26 16:01] LABS: Troponin-I HS 6 pg/mL (3.0-78.0)
== END 2021-07-26 23:59 | disposition short-term general hospital (02) ==
PROVIDERS: PCP Internal Medicine; Referring Provider Internal Medicine; Visit Provider Internal Medicine
DX: R07.89 Other chest pain (principal)
CPT/HCPCS: 36415; 84484

== ENCOUNTER 2021-07-28 08:45 | Outpatient (CLI) | payer MEDICARE, OTHER, SELFPAY ==
--- NOTE | 2021-07-28 08:56 | CT_ITS ---
STUDY: CTA CHEST REASON FOR EXAM: Male, 76 years old. SUSPECT PE. Recent total knee replacement. RADIATION DOSAGE (If Supplied By Facility): CTDIvol = ( 12.46 ) mGy, DLP = ( 552.65 ) mGycm TECHNIQUE: The examination was performed with the intravenous administration of IV 100mL Isovue-370. Post-processing of the angiographic images was performed, with multiplanar reformation and 3D reconstruction. Individualized dose optimization techniques were used for this CT. COMPARISON: Comparison is made with prior chest radiograph dated 07/25/2021. FINDINGS: Small benign-appearing bilateral axillary lymph nodes. Normal enhancement of the main pulmonary artery and right and left pulmonary arteries. Normal enhancement of the bilateral peripheral pulmonary arteries. There is no demonstrated pulmonary embolism. Normal thoracic aorta and visualized great vessels. There is no demonstrated aortic dissection. There are calcifications of the coronary arteries. Normal mediastinum. Normal hilar regions. Normal visualized trachea and bronchi. The lungs are well expanded. Normal pulmonary parenchyma. Normal pleura. Normal chest wall structures. There are degenerative changes of thoracic spine. Normal visualized upper abdomen. CT/CTA Chest W/WO Contrast IMPRESSION: Normal CTA chest examination, without a demonstrated pulmonary embolism or arterial dissection. Electronically Signed: Andre Trinidad MD at 9:56 EST , Service support ,
== END 2021-07-28 23:59 | disposition short-term general hospital (02) ==
LOC: CT 08:47
PROVIDERS: PCP Internal Medicine; Referring Provider Internal Medicine; Visit Provider Internal Medicine
DX: R07.9 Chest pain, unspecified (principal)
CPT/HCPCS: 71275; Q9967

== ENCOUNTER 2021-10-11 10:23 | Outpatient (CLI) | payer MEDICARE, OTHER, SELFPAY ==
--- NOTE | 2021-10-11 13:28 | NEURO ---
NCS and/or EMG Patient Report Ordering Doctor: Ran Jenkins DATE OF SERVICE: 10/11/21 Joaquin presents for electrodiagnostic testing of the right upper limb. He reports numbness and tingling in the right hand. Electrodiagnostic findings: Right median motor nerve demonstrates prolonged distal latency with normal amplitude and reduced conduction velocity. Right ulnar motor nerve demonstrates normal distal latency and amplitude with reduction of conduction velocity across the elbow. Prolonged right ulnar F wave is noted. Prolonged right median sensory latency at the wrist. On needle EMG, all muscles tested in the right upper limb, as well as the right cervical paraspinals, showed no evidence of denervation with normal motor unit action potentials. Electrodiagnostic impression: This is an abnormal study in the right upper limb 1. Electrodiagnostic findings demonstrate right-sided median mononeuropathy. This consistent with a mild to moderate right carpal tunnel syndrome next 2. Electrodiagnostic findings demonstrate right-sided ulnar neuropathy, consistent with a cubital tunnel syndrome, moderate in nature. 3. No electrodiagnostic evidence is noted for cervical radiculopathy.
== END 2021-10-11 23:59 | disposition home or self-care (01) ==
LOC: PSN 10:25
PROVIDERS: PCP Internal Medicine; Visit Provider Orthopaedic Surgery
DX: M47.22 Other spondylosis with radiculopathy, cervical region (principal); R20.2 Paresthesia of skin
CPT/HCPCS: 95886; 95910

== ENCOUNTER → 2022-03-06 | Outpatient (CLI) | payer MEDICARE, OTHER, SELFPAY ==
--- NOTE | 2022-03-06 13:36 | ART_ITS ---
Reason For Study: Black toe Procedure A bilateral lower extremity continuous wave Doppler with analog waveform analysis and ankle brachial indexes. Left Segmental Pressures Left brachial= 106mmHg. Left posterior tibial artery = 142mmHg. Left dorsalis pedis artery = 152mmHg. Left digit = 112 mmHg. The left dorsalis pedis waveforms are triphasic. The left posterior tibial artery waveforms are triphasic. Right Segmental Pressures Right brachial= 103mmHg. Right posterior tibial artery = 147mmHg. Right dorsalis pedis artery = 152mmHg. Right digit = 124 mmHg. The right dorsalis pedis waveforms are triphasic. The right posterior tibial artery waveforms are triphasic. Indices The right ankle brachial index by the dorsalis pedis is 1.43. The right ankle brachial index by the posterior tibial artery is 1.39. The right digital-brachial index is 1.17. The left ankle brachial index by the dorsalis pedis is 1.43. The left ankle brachial index by the posterior tibial artery is 1.34. The left digital-brachial index is 1.06. VL/Lower Ext Art Exam w/o Exercis Interpretation Summary Triphasic Doppler waveforms are noted at ankle level bilaterally. Pulse-volume recordings appear satisfactory at all levels bilaterally. Resting ankle-brachial indices are supr a-normal bilaterally. Digital-brachial indices are normal bilaterally. There is evidence of arterial calcification in the lower extremities bilaterall y. There is no evidence of significant arterial occlusive disease in the lower extremities richard aterally. Ordering Physician: Edna Reynaga Referring Physician: Edna Reynaga Performed By: Rimma Galicia RVT
== END | disposition home or self-care (01) ==
LOC: CVS 13:33
PROVIDERS: PCP Internal Medicine; Referring Provider Internal Medicine; Visit Provider Internal Medicine
DX: I96 Gangrene, not elsewhere classified (principal)
CPT/HCPCS: 93923

== ENCOUNTER → 2022-08-28 | Outpatient (CLI) | payer MEDICARE, OTHER, SELFPAY ==
--- NOTE | 2022-08-28 15:19 | CT_ITS ---
STUDY: CT BRAIN WITHOUT CONTRAST REASON FOR EXAM: Male, 77 years old. FALL/GRUBBS RADIATION DOSAGE (If Supplied By Facility): CTDIvol = ( 44.99 ) mGy, DLP = ( 880.47 ) mGycm TECHNIQUE: Transaxial CT imaging of the brain was performed without administration of intravenous contrast material. Individualized dose optimization techniques were used for this CT. COMPARISON: No relevant priors. FINDINGS: Normal soft tissue structures. Normal calvarium. There is mild cerebral atrophy with widening of the extra-axial spaces and ventricular dilatation. Normal white matter tracts of the cerebral hemispheres. Normal basal ganglia and thalami. Normal brainstem. Normal cerebellum. There is no intracranial hemorrhage. There are no findings of an acute ischemic infarction. Atherosclerotic calcification of the cavernous portions of the internal carotid arteries bilaterally. Air-fluid level in the left sphenoid sinus. Mild mucosal thickening of the maxillary sinuses. Partial opacification of the ethmoid sinuses. CT/Brain/Head without Contrast IMPRESSION: Chronic involutional changes of the brain. Sinusitis. Electronically Signed: Andre Trinidad MD at 15:36 EST ,
== END | disposition home or self-care (01) ==
PROVIDERS: PCP Internal Medicine; Referring Provider Internal Medicine; Visit Provider Internal Medicine
DX: R51.9 Headache, unspecified (principal); Z79.01 Long term (current) use of anticoagulants
CPT/HCPCS: 70450

== ENCOUNTER → 2022-12-10 | Outpatient (CLI) | payer MEDICARE, OTHER, SELFPAY ==
--- NOTE | 2022-12-10 14:35 | CT_ITS ---
STUDY: CT PELVIS WITHOUT CONTRAST REASON FOR EXAM: Male, 77 years old. Inguinal pain RADIATION DOSAGE (If Supplied By Facility): CTDIvol = ( 14.19 ) mGy, DLP = ( 944.95 ) mGycm TECHNIQUE: Transaxial imaging of the pelvis was performed with oral contrast, and without intravenous administration of contrast material. Individualized dose optimization techniques were used for this CT. COMPARISON: None. FINDINGS: Limited cuts through the lower abdomen and upper pelvis show retained stool throughout the colon which may be impacted. There is no obstructive uropathy but there are nonobstructing renal stones. There is no pelvic fluid. There is no pelvic mass lesion or lymphadenopathy. There is diffuse atherosclerotic calcification of the pelvic arteries. No CT evidence of inguinal or periumbilical hernia. There are diffuse degenerative changes of the visualized lumbar spine, and pelvis. 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
== END | disposition home or self-care (01) ==
LOC: CT 14:23
PROVIDERS: PCP Internal Medicine; Referring Provider Surgery; Visit Provider Surgery
DX: R10.30 Lower abdominal pain, unspecified (principal)
CPT/HCPCS: 72192

== ENCOUNTER 2022-12-27 10:05 | Day surgery (SDC) | payer MEDICARE, OTHER, SELFPAY ==
--- NOTE | 2022-12-21 08:13 | EKG12_ITS ---
Test Reason : PREOP Blood Pressure : / mmHG Vent. Rate : 053 BPM Atrial Rate : 053 BPM P-R Int : 208 ms QRS Dur : 098 ms QT Int : 430 ms P-R-T Axes : 061 029 024 degrees QTc Int : 403 ms Sinus bradycardia Otherwise normal ECG Confirmed by CHARLES MOYA, EZRA ([id number]), sound editor JUDY BALTAZAR ([id number]) on 12/25/2022 8:42:03 AM Referred By: Martir Clifton Confirmed By:EZRA SOTO MD
[2022-12-21 08:36] LABS: Hematocrit 48.5 % (40-54); Hemoglobin 15.2 g/dL (13.0-16.5); Mean Corp Hgb Conc 31.3 g/dL (32-36); Mean Corpuscular Hgb 25.9 pg (27.0-32.0); Mean Corpuscular Volume 82.8 fL (80-94); Mean Platelet Vol. 9.9 fl (6.2-12.0); Platelet Count 134 K/mm3 (150-450); RBC Distribution Width CV 15.3 % (11.6-14.6); RBC Distribution Width SD 46.1 fl (35.1-43.9); Red Blood Count 5.86 M/mm3 (4.6-6.2); White Blood Count 5.7 K/mm3 (4.4-11.0)
[2022-12-21 08:59] LABS: Anion Gap 3 (5-15); BUN 25 mg/dL (7-18); BUN/Creat Ratio 22.5 RATIO (10-20); Calcium,Total 9.5 mg/dL (8.5-10.1); Chloride 106 mmol/L (98-107); Creatinine, Serum 1.11 mg/dL (0.70-1.30); EST Glomerular Filtration Rate 69 mL/min (>60); Est Glom Filt Rate - Afr Amer 83 mL/min (>60); Glucose 95 mg/dL (74-106); Potassium 4.3 mmol/L (3.5-5.1); Sodium Level 139 mmol/L (136-145)
[2022-12-27] VITALS (8 sets, daily range): BP systolic 111–128; BP diastolic 69–78; PULSE 50–81; RESP 16–18; TEMP 36.5–37.1; O2SAT 92–97; BMI 31.7
[2022-12-27] MEDS: Lactated Ringers 1,000 ML 15 ML IV ×2 (11:01→12:01)
--- NOTE | 2022-12-27 11:20 | PCM.HP.BLA ---
History and Physical Date of Admission: 12/27/22 Allergies No Known Allergies Allergy (Verified 12/25/22 09:44) Medications atorvastatin 20 mg tablet 20 mg PO DAILY cholesterol 03/02/16 [History Confirmed 12/25/22] citalopram 40 mg tablet 40 mg PO DAILY depression 03/02/16 [History Confirmed 12/25/22] fenofibrate 160 mg tablet 160 mg PO DAILY cholesterol 03/02/16 [History Confirmed 12/25/22] tamsulosin 0.4 mg capsule 0.4 mg PO DAILY prostate 03/02/16 [History Confirmed 12/25/22] amlodipine 5 mg tablet 5 mg PO DAILY bp 08/03/16 [History Confirmed 12/25/22] valsartan 320 mg tablet 320 mg PO DAILY bp 08/06/16 [History Confirmed 12/25/22] apixaban 5 mg tablet 5 mg PO BID blood thinner 10/07/17 [History Confirmed 12/25/22] aspirin 81 mg tablet,delayed release (Adult Low Dose Aspirin) 81 mg PO QDAY [facility]\ 10/07/17 [History Confirmed 12/25/22] tizanidine 4 mg capsule (Zanaflex) 12 mg PO QHS 05/25/22 [History Confirmed 12/25/22] PFS Medical History? Abnormal electrocardiogram Alcohol use Arthritis Cardiology follow-up encounter Cardiomyopathy in other diseases classified elsewhere CPAP (continuous positive airway pressure) dependence Depression Essential (primary) hypertension Former smoker High cholesterol History of edema History of stress test Hyperlipidemia Nonobstructive atherosclerosis of coronary artery Obesity Paroxysmal atrial fibrillation Paroxysmal atrial flutter Prostate cancer Radioactive implant insertion precaution Syncope Wears glasses Wears hearing aid Surgical History?(Updated 12/20/22 @ 13:09 by Phoebe Reynolds) History of bilateral knee replacement History of cardiac radiofrequency ablation (RFA) (11/01/16) History of cardioversion (08/06/16) History of left heart catheterization (06/08/19) History of right knee surgery History of tonsillectomy History of varicose vein ligation Hx of colonoscopy Hx of cystoscopy Hx of inguinal hernia repair Hx of inguinal hernia surgery Hx of repair of rotator cuff Family History? Father CVA (cerebral vascular accident) Parkinsons diseaseMother HypertensionBrother CAD (coronary artery disease) Stented coronary artery Social History? Smoking Status:? Former smoker HPI HPI HPI: 77-year-old gender presents to discuss CT imaging results regarding a potential recurrent left inguinal hernia.? The imaging was specifically done as the patient is having left groin pain and there was concerned about a recurrent left inguinal hernia.? There was concern however also about potential adenopathy.? CT imaging report suggests no inguinal or periumbilical hernia.? There is diffuse degenerative changes of the spine.? There is evidence of previous radiation beads in the prostate.? There is no pelvic mass or lymphadenopathy.? Retained stool was noted throughout the colon.? 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 I have personally reviewed the images and have concerns that there is evidence of abdominal roque or pigtail screws potentially securing mesh in place suggestive of possible previous laparoscopic left inguinal hernia repair.? I have also compared the current images back to previous CT images of December 20, 2014.? Regarding the potential for a left inguinal hernia they look very similar.? There does appear to be some more fibro fatty change of the inguinal cord which may be consistent with a cord lipoma.? I have personally reviewed the images with Dr. Trinidad and we believe that there is asymmetry on the peritoneum on the left on the right.? There is appears to be tacks on both sides consistent with previous bilateral hernia repairs.? The patient notes that he has had staged bilateral inguinal her pairs 1 in 2004 and 1 2014.? The left one was done first on the right 1 second.? He notes a bulging on the left when he exercises and lifts weights.? He points to the superior aspect of the left groin area and states that he has a discomfort.? Because of fear possibly worsening the area he is given up on the lifting weights.? He notes that he is an avid runner and wants to repeat running a 5K for time.? He claims he did that at age 75.? He is concerned that as he ages the risks of surgery will increase. December 10, 2022 STUDY:? CT PELVIS WITHOUT CONTRAST REASON FOR EXAM: ? Male, 77 years old.? Inguinal pain RADIATION DOSAGE (If Supplied By Facility):? CTDIvol = ( 14.19 ) mGy, DLP = ( 944.95 ) mGycm TECHNIQUE: ? Transaxial imaging of the pelvis was performed with oral contrast, and without intravenous administration of contrast material. Individualized dose optimization techniques were used for this CT. COMPARISON: ? None. FINDINGS: Limited cuts through the lower abdomen and upper pelvis show retained stool throughout the colon which may be impacted. There is no obstructive uropathy but there are nonobstructing renal stones. There is no pelvic fluid.? There is no pelvic mass lesion or lymphadenopathy. There is diffuse atherosclerotic calcification of the pelvic arteries. No CT evidence of inguinal or periumbilical hernia.? There are diffuse degenerative changes of the visualized lumbar spine, and pelvis. Lucent lesion in the left iliac shows sclerotic margins without evidence of expansion, it is likely benign as it measures negative numbers on Hounsfield units suggesting an intraosseous lipoma Brachytherapy beads noted in the prostate CT/Pelvis without IV Contrast IMPRESSION: No demonstrated fracture or suspicious osseous lesion ? No CT evidence of hernia ? Retained stool throughout the colon which may be impacted ? Degenerative bony changes ? Bilateral nonobstructing nephrolithiasis ? 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 Electronically Signed: Alfredo Lazaro MD at 15:29 EDT , My previous notes reflect the following Visit Reasons:?SELF REFERRED HERNIA Chief Complaint: HERNIA REFERRAL Allergies No Known Allergies Allergy (Verified 11/29/22 14:58) Medications atorvastatin 20 mg tablet 20 mg PO QHS cholesterol 03/02/16 [History Confirmed 11/29/22] citalopram 40 mg tablet 40 mg PO DAILY depression 03/02/16 [History Confirmed 11/29/22] fenofibrate 160 mg tablet 160 mg PO DAILY cholesterol 08/12/16 [History Confirmed 11/29/22] tamsulosin 0.4 mg capsule 0.4 mg PO DAILY prostate 03/02/16 [History Confirmed 11/29/22] amlodipine 5 mg tablet 5 mg PO DAILY bp 08/03/16 [History Confirmed 11/29/22] valsartan 320 mg tablet 320 mg PO DAILY bp 08/06/16 [History Confirmed 11/29/22] apixaban 5 mg tablet 5 mg PO BID blood thinner 10/07/17 [History Confirmed 11/29/22] aspirin 81 mg tablet,delayed release (Adult Low Dose Aspirin) 81 mg PO QDAY [place]\ 10/07/17 [History Confirmed 11/29/22] folic acid 1 mg tablet 2 mg PO DAILY 04/25/21 [History Confirmed 11/29/22] tizanidine 4 mg capsule (Zanaflex) 4 mg PO QHS PRN 05/25/22 [History Confirmed 11/29/22] PFSH Medical History? Abnormal chest CT Abnormal electrocardiogram Cardiomyopathy in other diseases classified elsewhere Essential (primary) hypertension Hyperlipidemia Nonobstructive atherosclerosis of coronary artery Obesity Paroxysmal atrial fibrillation Paroxysmal atrial flutter Prostate cancer Syncope and collapse Surgical History? History of bilateral knee replacement History of cardiac radiofrequency ablation (RFA) (11/01/16) History of cardioversion (08/06/16) History of left heart catheterization (06/08/19) History of right knee surgery History of tonsillectomy History of varicose vein ligation Family History? Father CVA (cerebral vascular accident) Parkinsons diseaseMother HypertensionBrother CAD (coronary artery disease) Stented coronary artery Social History? Smoking Status:? Former smoker HPI HPI HPI: 77-year-old gentleman.? He is seen at the [facility] because of atrial fibrillation and failed ablation therapy.? Among his other medications he is on apixaban as well as low-dose aspirin therapy.? In addition he has a history of prostate cancer.? He has had prior radiation treatment to the prostate. He has had a left inguinal hernia repair done through an open approach 2004.? He also had a right inguinal hernia repair done about 5 years ago. More recently he has had bilateral knee replacements and a staged procedure.? 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 He has plans mid February to go on an overseas trip which will involve a lot of walking. The patient continues to do quite a bit of walking as exercise and does some weightlifting as well. ROS General General: No weight change, appetite, fatigue, colon cancer, breast cancer or weakness HEENT HEENT: No difficulty swallowing, eye injury, eye surgery, swollen glands or hoarseness Endo Endocrine: No thyroid disease, diabetes mellitus, thyroid cancer, Hair loss, heat intolerance or cold intolerance Skin Skin: No rash or changing moles Breast Breast: No left breast lump, right breast lump, nipple discharge, breast pain, abnormal mammogram, abnormal US or breast enlargement Musc Musculoskeletal: No back problems, arthritis, rheumatoid arthritis, gout or joint pain Cardio Cardiovascular: Yes atrial fibrillation; No murmur, pacemaker, heart disease, high blood pressure, heart attack, heart stent, palpitations, shortness of breat with exertion or chest pain Psych Psychiatric: No depression, anxiety or hearing voices Resp Respiratory: No shortness of breath, Yes sleep apnea, No cough, No COPD, No asthma, No emphysema and No wheezing Gastro Gastrointestinal: No abdominal pain, No nausea or vomiting, No diarrhea, No constipation, No blood in stool, No acid reflux, No hemorrhoids, No ulcers, No gallbladder problem and No black,tarry stools Yaw Hematologic: Yes blood thinners, No blood disorders, No bleeding, No anemia and No blood clots Neuro Neurologic: No system reviewed and no additional complaints, except as documented, No as per HPI, No abnormal gait, No abnormal hearing, No abnormal movements, No abnormal speech, No behavioral changes, No burning sensations, No confusion, No convulsions, No disequilibrium, No dizziness, No localized weakness, No frequent falls, No headache(s), No lack of coordination, No loss of vision, No memory loss, No numbness, No other visual disturbances, No radicular pain, No restless legs, No sensory deficit, No syncope, No tingling, No tremor(s), No weakness and No other Exam Const General: cooperative, healthy appearing, comfortable and no acute distress Nutritional Appearance: overweight HENMT Head: normal to inspection Eyes General: appearance normal, both eyes and all related structures Neck Neck: normal visual inspection Chest Chest palpation & inspection: normal inspection of the chest Resp Effort & Inspection: normal respiratory effort Auscultation: clear to auscultation bilaterally Cardio Rate: regular rate Rhythm: regular rhythm Other: Femoral pulses are quite prominent at 3+. GI Other: Soft, nontender, well-healed transverse left groin incision, fibrofatty fullness with a suggestion of some medial bulging. Other: Bilateral groins have fibrofatty fullness.? Not tender.? Not distinct adenopathy.? Left slightly more than the right. Skin General: no rashes or lesions noted Neuro General: patient alert, patient awake and patient oriented x3 Extrem General: no calf tenderness Psych Appearance: grossly normal Assessment and Plan Assessment and Plan (1) Recurrent inguinal hernia of left side without obstruction or gangrene: ?Status:?Acute Plan Patient has a remote history of an open left inguinal herniorrhaphy performed in 2004.? Recently subsequent to staged bilateral knee replacements he is developed a bulge and some tenderness in the left groin.? Does not recall a distinct accident.? Clinically I am suspicious as is the patient that he has a recurrent hernia.? I cannot decipher whether this is possibly a femoral defect or weakness medially.? I am also not sure whether he has adenopathy. He has had a history of radiation treatment for prostate cancer but has not had prostate surgery.? I have proposed for him a laparoscopic recurrent left inguinal herniorrhaphy.? We have discussed technique and benefit.? I do propose for him a CT imaging of the pelvis.? Because of his upcoming trip in February we will tentatively schedule him for an operative date now.? I will see him back in the office prior to that date to finalize surgery plans. He has had an opportunity to ask and have questions answered.? We will proceed as noted.? The patient states that he will be changing care to Dr. Ligia Humphries December 2022 because of insurance plan requirements Copy: Dr. Edan Clifton M.D., F.A.C.S ROS General General: No weight change, appetite, fatigue, colon cancer, breast cancer or weakness HEENT HEENT: No difficulty swallowing, eye injury, eye surgery, swollen glands or hoarseness Endo Endocrine: No thyroid disease, diabetes mellitus, thyroid cancer, Hair loss, heat intolerance or cold intolerance Skin Skin: No rash or changing moles Breast Breast: No left breast lump, right breast lump, nipple discharge, breast pain, abnormal mammogram, abnormal US or breast enlargement Musc Musculoskeletal: No back problems, arthritis, rheumatoid arthritis, gout or joint pain Cardio Cardiovascular: Yes atrial fibrillation; No murmur, pacemaker, heart disease, high blood pressure, heart attack, heart stent, palpitations, shortness of breat with exertion or chest pain Psych Psychiatric: No depression, anxiety or hearing voices Resp Respiratory: No shortness of breath, Yes sleep apnea, No cough, No COPD, No asthma, No emphysema and No wheezing Gastro Gastrointestinal: No abdominal pain, No nausea or vomiting, No diarrhea, No constipation, No blood in stool, No acid reflux, No hemorrhoids, No ulcers, No gallbladder problem and No black,tarry stools Yaw Hematologic: Yes blood thinners, No blood disorders, No bleeding, No anemia and No blood clots Neuro Neurologic: No system reviewed and no additional complaints, except as documented, No as per HPI, No abnormal gait, No abnormal hearing, No abnormal movements, No abnormal speech, No behavioral changes, No burning sensations, No confusion, No convulsions, No disequilibrium, No dizziness, No localized weakness, No frequent falls, No headache(s), No lack of coordination, No loss of vision, No memory loss, No numbness, No other visual disturbances, No radicular pain, No restless legs, No sensory deficit, No syncope, No tingling, No tremor(s), No weakness and No other Assessment and Plan Assessment and Plan (1) Recurrent inguinal hernia of left side without obstruction or gangrene: ?Status:?Acute ?Plan: After review again discussing symptoms with the patient and CT imaging and a repeat clinical exam of the left groin today I am suspicious that he has a recurrent left inguinal hernia.? We had a 20-minute [id number] discussion regarding benefit risk complication alternatives.? It appears that his previous hernia repairs were both done laparoscopically and he has radiation pellets in the prostate for his history of prostate cancer.? I discussed with him the potential proceeding with a recurrent left inguinal hernia repair in an open technique and not laparoscopically.? I proposed a Ilda type repair bolstering the area with mesh.? Unfortunately I was not able to give him on 100% guarantee that this would solve his symptomatology.? We additionally offered him a nonoperative approach of [id number].? We discussed potential referral to pain specially for possible nerve block injection however he is not describing a neuropathic Stingley firing type of pain and instead more of a pressure discomfort more of a dull ache and more of a bulging.? He points to the superior aspect of the left groin.? It is of additional note that the CT scan does not detect any abdominal wall hernia i.e. spigelian hernia. After discussing the technique benefits risk complications alternatives potential outcomes he is elected proceed with a recurrent left inguinal hernia repair and I at this point recommend that we do that through an open approach Ilda type repair.? He has had an opportunity to ask and have questions answered.? He has been off his Eliquis we will hold his currently scheduled operative date as noted. Copy: Dr. Ofelia Clifton M.D., F.A.C.S. I have examined the patient and the H&P has been reviewed. There are no clinical changes since date of exam. Martir Clifton M.D., F.A.C.S.
--- NOTE | 2022-12-27 11:45 | DCINST_ITS ---
Discharge Instructions Procedure General Surgery Diet Discharge Diet: Light diet - advance as tolerated (if you have questions about your diet instructions, please talk to you doctor.) Activity Discharge Activity: May Not Drive (for 3-5 days or while taking narcotic pain medicine.) May shower in (days): 1 Lifting Restrictions: 10 pounds Dressing / Incision Call your doctor if your incision/area has: Continuous Slow Oozing, Sudden Increased Bleeding, Increased Pain/ Swelling, Increased Redness and Foul Smelling Discharge Call your doctor if you observe: Fever of 101 or Higher Suture Line Care: Avoid Pulling/Pushing and Avoid Pinching/Bending Additional Dressing/Incision Instructions:: Change or remove dressing in 4 days. Leave steri-strips in place for 1 week. Follow Up Care Please Follow Up With: Martir Clifton MD When: Call [phone] to make an appointment to be seen in about 10 days. Test Results: Test results from this visit will be discussed in further detail at your follow- up appointment, if applicable. Discharge Plan Admission Attending Provider: Martir Clifton Primary Care Provider: Ligia Humphries Discharge Orders/Prescriptions Prescriptions: No Action aspirin [Adult Low Dose Aspirin] 81 mg tablet,delayed release (DR/EC) 81 mg PO QDAY apixaban 5 mg tablet 5 mg PO BID tizanidine [Zanaflex] 4 mg capsule 12 mg PO QHS atorvastatin 20 MG tablet 20 mg PO DAILY citalopram 40 MG tablet 40 mg PO DAILY tamsulosin 0.4 MG capsule 0.4 mg PO DAILY fenofibrate 160 MG tablet 160 mg PO DAILY amlodipine 5 MG tablet 5 mg PO DAILY valsartan 320 MG tablet 320 mg PO DAILY Referrals / Follow Up: Ligia Humphries DO [Primary Care Provider] - Disposition Disposition (needs filled in before D/C Order can be placed): Home, Self Care
[2022-12-27] MEDS: Cefazolin 2 GM in 0.9% Normal Saline 100 ML IV (11:54)
[2022-12-27] MEDS: Bupivacaine Mpf 0.5% 30 ML VIAL (12:02)
--- NOTE | 2022-12-27 13:32 | OP.PCM_ITS ---
Report of Operation Date of Procedure: 12/27/22 Pre-Operative Diagnosis: Recurrent left inguinal hernia Post-Operative Diagnosis: Recurrent direct left inguinal hernia Surgery/Procedure Performed:: Left inguinal herniorrhaphy Ilda technique Bard mesh monofilament polypropylene self constructed keyhole patch measuring 12 x 5.5 cm Description of Surgical Findings:: Timeout informed consent was obtained. 77-year-old gentleman was taken to the operating placed supine the table underwent general endotracheal ovation esthesia Ancef 2 g given intravenously the left groin was sterilely prepped and draped a transverse elliptical excision of the previous transverse skin scar was performed electrocautery dissection performed down through the subcutaneous tissues scarring and cicatrix was encountered and sharp and electrocautery dis section and blunt dissection was required until finally was able to identify the external oblique and what I felt was the external inguinal ring. 15 blade was used to make a incision in the external oblique which was extended laterally cremasteric fibers were hypertrophied with scar tissue and induration circumferential control and with ongoing tedious blunt and sharp dissection was able to identify the inguinal cord. The external bleak was somewhat fused to the aponeurosis of the internal/external oblique suggesting previous surgical intervention in this area particularly superior slightly to my incision I incised that tissue and was able to get more freedom of the aponeurosis of the internal and external oblique there is evidence of a complete direct defect extending from the internal ring to the pubic tubercle was able to finally dissect free and get tissue freed overlying the pubic tubercle. I then approximated what remained of the transversalis fascia and the aponeurosis of the internal/external oblique with a running 4-0 Ethibond achieving containment with inversion of the direct hernia sac. Was able to reconstruct the internal ring. I then used the Bard monofilament mesh and shape for myself a keyhole mesh wider and longer than the standard product. I sutured medially with several interrupted 3-0 Ethibond to secure the mesh to the pubic tubercle and then attached at the aponeurosis of the internal/external oblique and the shelving edge of Poupart's with multiple interrupted simple sutures I incised the mesh laterally and then placed that around the cord structures I secured the mesh at the internal ring medially and then approximated the mesh in a bottom over top fashion with 3-0 Ethibond. At the completion I felt that I had good coverage of the previous defect area. The external oblique was approximated with a running 3-0 Vicryl laterally. Cord structures placed back intact. This was technically a very challenging and demanding procedure and identifying anatomy and finding tissues for repair. Subcutaneous tissues proximal interrupted 3-0 Vicryl. Skin edges proximal and subicular 4 Monocryl. Steri-Strips Telfa OpSite dressings applied. Is of note that the fashion Sohail incisional tissue were anesthetized with 0.5% Marcaine and a total of 30 cc was used. Specimen none. The skin scar was inspected and discarded. Drains none. Blood loss minimal. The patient was taken to the recovery room in satisfactory addition without apparent complication Martir Clifton M.D., F.A.C.S. Surgeon: Martir Clifton Type of Anesthesia: General and Local Anesthesiologist: Vish Canela
[2022-12-27] MEDS: Sugammadex Sodium 200 MG/2 ML VIAL IV (13:36)
[2022-12-27] MEDS: HYDROcodone Bitartrate/Apap 5/325 Tablet PO (15:51)
== END 2022-12-27 16:55 | disposition home or self-care (01) ==
LOC: SDC 10:05 → AC 10:06
PROVIDERS: PCP Family Medicine; Referring Provider Surgery; Visit Provider Surgery
PROC: (CPT 49520; principal; 2022-12-27 11:45)
DX: K40.91 Unilateral inguinal hernia, without obstruction or gangrene, recurrent (principal); I11.0 Hypertensive heart disease with heart failure; I50.9 Heart failure, unspecified; I48.0 Paroxysmal atrial fibrillation; E78.00 Pure hypercholesterolemia, unspecified; F32.A Depression, unspecified; E66.9 Obesity, unspecified; G47.30 Sleep apnea, unspecified; Z87.891 Personal history of nicotine dependence; Z79.01 Long term (current) use of anticoagulants; Z79.82 Long term (current) use of aspirin; Z79.899 Other long term (current) drug therapy; Z68.31 Body mass index [BMI] 31.0-31.9, adult
CPT/HCPCS: 49520; 00830; 36415; 80048; 85027; 93005; J7120; J2405

== ENCOUNTER → 2023-01-29 | Outpatient (CLI) | payer MEDICARE, OTHER, SELFPAY | END | disposition home or self-care (01) | LOC: LABSPEC 17:40 | PROVIDERS: PCP Family Medicine; Visit Provider Family Medicine | DX: R31.9 Hematuria, unspecified (principal) | CPT/HCPCS: 87077; 87086; 87088; 87186 ==

== ENCOUNTER → 2023-02-25 | Outpatient (CLI) | payer MEDICARE, OTHER, SELFPAY | END | disposition home or self-care (01) | LOC: LABSPEC 16:13 | PROVIDERS: PCP Family Medicine; Referring Provider Urology; Visit Provider Urology | DX: R31.0 Gross hematuria (principal) | CPT/HCPCS: 87077; 87086; 87088; 87186 ==

== ENCOUNTER → 2023-02-27 | Outpatient (CLI) | payer MEDICARE, OTHER, SELFPAY ==
--- NOTE | 2023-02-27 15:52 | CT_ITS ---
EXAM: CT ABDOMEN AND PELVIS WITHOUT INTRAVENOUS CONTRAST CLINICAL INDICATION: GROSS HEMATURIA, PROSTATE CANCER WITH SEEDS TECHNIQUE: Helically acquired images were obtained of the abdomen and pelvis without intravenous contrast. This CT exam was performed using one or more of the following dose reduction techniques: automated exposure control, adjustment of the mA and/or kV according to patient size, and/or use of iterative reconstruction technique. RADIATION DOSE: CTDIvol = 14.54 mGy, DLP = 740.99 mGy-cm COMPARISON: No relevant prior studies available. FINDINGS: LOWER THORAX: Unremarkable. Lung bases are clear. No cardiomegaly. No significant pericardial effusion. ABDOMEN: LIVER: Unremarkable. Homogeneous. GALLBLADDER AND BILE DUCTS: The gallbladder is contracted. No calcified gallstones. No gallbladder distention or wall edema. No intra- or extrahepatic biliary ductal dilation. PANCREAS: Unremarkable. No focal cystic mass. SPLEEN: Unremarkable. Normal size without focal cystic or solid mass. ADRENALS: Unremarkable. No nodules. KIDNEYS AND URETERS: Multiple nonobstructing stones within the intrarenal collecting systems, the largest measuring 1 cm on the left. There is a simple left renal cyst. No follow-up imaging is recommended per consensus recommendations based on imaging criteria. Normal renal size and position. STOMACH AND BOWEL: Unremarkable. No stomach or bowel distention. No focal inflammatory change. PELVIS: APPENDIX: No evidence of acute appendicitis. BLADDER: Unremarkable. REPRODUCTIVE: Prostate brachytherapy. ABDOMEN and PELVIS: INTRAPERITONEAL SPACE: Unremarkable. No ascites or other fluid collection. No free air. BONES/JOINTS: Previously described lucent lesion in the left iliac with sclerotic margins. Diffuse degenerative changes of the spine. SOFT TISSUES: Prior surgical repair of the lower abdominal wall. No discrete abdominal or pelvic wall hernia. VASCULATURE: Unremarkable. Abdominal aorta is non-dilated. LYMPH NODES: Unremarkable. No enlarged lymph nodes. CT/Abdomen/Pelvis without Cont IMPRESSION: 1. Prostate brachytherapy. 2. Multiple nonobstructing stones within the intrarenal collecting systems, the largest measuring 1 cm on the left. No ureteral stones or renal obstruction. Electronically Signed: Benji Malone MD at 1:43 EDT ,
== END | disposition home or self-care (01) ==
PROVIDERS: PCP Family Medicine; Referring Provider Urology; Visit Provider Urology
DX: R31.0 Gross hematuria (principal)
CPT/HCPCS: 74176

== ENCOUNTER → 2023-05-16 | Outpatient (CLI) | payer MEDICARE, OTHER, SELFPAY ==
[2023-05-16 15:54] LABS: ALB/GLOB Ratio 1.2 RATIO (0.9-2.4); AST(SGOT) 11 U/L (15-37); Alanine Aminotransfer ALT/SGPT 17 U/L (16-61); Albumin, Serum 3.9 g/dL (3.2-5.0); Alkaline Phosphatase 110 U/L (45-117); Anion Gap 7 (5-15); BUN 27 mg/dL (7-18); BUN/Creat Ratio 22.1 RATIO (10-20); Calcium,Total 9.1 mg/dL (8.5-10.1); Chloride 107 mmol/L (98-107); Cholesterol 124 mg/dL (200); Creatinine, Serum 1.22 mg/dL (0.70-1.30); EST Glomerular Filtration Rate 61 mL/min (>60); Est Glom Filt Rate - Afr Amer 74 mL/min (>60); Globulin 3.2 g/dL (2.2-4.2); Glucose 85 mg/dL (74-106); High Density Lipoprotein 48 mg/dL; Potassium 4.2 mmol/L (3.5-5.1); Protein, Total 7.1 g/dL (6.4-8.2); Sodium Level 140 mmol/L (136-145); Thyroid Stim Hormone (TSH) 2.34 uIU/mL (0.358-3.74); Triglycerides 90 mg/dL; Very Low Density Lipoprotein 18 mg/dL (5-40)
== END | disposition home or self-care (01) ==
LOC: MTLAB 12:40
PROVIDERS: PCP Family Medicine; Referring Provider Family Medicine; Visit Provider Family Medicine
DX: E78.00 Pure hypercholesterolemia, unspecified (principal); I10 Essential (primary) hypertension
CPT/HCPCS: 36415; 80053; 80061; 82043; 84443

== ENCOUNTER → 2023-06-17 | Outpatient (CLI) | payer MEDICARE, OTHER, SELFPAY ==
--- NOTE | 2023-06-17 14:18 | RAD_ITS ---
STUDY: X-RAY - ABDOMEN/PELVIS REASON FOR EXAM: Male, 77 years old. Renal calculi. TECHNIQUE: Single AP view of the abdomen / pelvis on 2 images. Lower portion of the pelvis is not included on the images. COMPARISON: CT of the abdomen and pelvis dated February 27, 2023 FINDINGS: Normal visualized lung bases. Normal bowel gas pattern with air seen to the rectosigmoid. No disproportionate dilatation of bowel. Moderate amount of feces in the colon. Multiple small calcifications projected over the region of the lower pole of the left kidney, measuring less than 2 mm in diameter. Normal soft tissue structures. Normal visualized osseous structures. RAD/Abdomen Single View IMPRESSION: Bowel gas and feces limit evaluation of renal calculi. Multiple small calculi projected over the lower pole of the left kidney as described. Electronically Signed: Kang Morley MD at 11:29 EST ,
== END | disposition home or self-care (01) ==
LOC: RAD 14:16
PROVIDERS: PCP Family Medicine; Referring Provider Urology; Visit Provider Urology
DX: N20.0 Calculus of kidney (principal)
CPT/HCPCS: 74018

== ENCOUNTER 2023-07-12 10:19 | Day surgery (SDC) | payer MEDICARE, OTHER, SELFPAY ==
[2023-07-12] VITALS (9 sets, daily range): BP systolic 133–167; BP diastolic 82–96; PULSE 57–68; RESP 16; TEMP 36.1–36.4; O2SAT 89–96; BMI 32.1
--- NOTE | 2023-07-12 10:23 | RAD_ITS ---
STUDY: X-RAY - ABDOMEN/PELVIS REASON FOR EXAM: Male, 78 years old. PRE OP bilateral kidney calculi. TECHNIQUE: Single AP view of the abdomen / pelvis. COMPARISON: Comparison is made with prior study dated June 17, 2023. FINDINGS: Normal visualized lung bases. There is an abundance of fecal material throughout the colon. Tiny calcification is seen overlying the lower pole of the right kidney as well as the lower pole of the left kidney. Prior bilateral inguinal hernia repair. 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 There are diffuse degenerative changes of the visualized lumbar spine. RAD/Abdomen Single View IMPRESSION: Tiny bilateral calculi in the lower pole of both kidneys. Electronically Signed: Andre Trinidad MD at 12:09 EST ,
[2023-07-12] MEDS: Lactated Ringers 1,000 ML 15 ML IV (10:50)
[2023-07-12] MEDS: Cefazolin 2 GM in 0.9% Normal Saline (100mL Bag) 100 ML IV (13:51)
--- NOTE | 2023-07-12 14:13 | PCM.HP.STD ---
HPI - General General Date of Service: 07/12/23 Chief Complaint: Gross hematuria bilateral kidney stones HPI Narrative NIKHIL DIAZ, is a 78 M who presents for treatment of kidney stones and a diagnostic cystoscopy [facility] Medical History (Updated 07/12/23 @ 14:[address] Rangel Armstrong MD) Abnormal electrocardiogram Alcohol use Arthritis Cardiology follow-up encounter Cardiomyopathy in other diseases classified elsewhere CPAP (continuous positive airway pressure) dependence Depression Essential (primary) hypertension Former smoker High cholesterol History of edema History of stress test Hyperlipidemia Nonobstructive atherosclerosis of coronary artery Obesity Paroxysmal atrial fibrillation Paroxysmal atrial flutter Prostate cancer Radioactive implant insertion precaution Syncope Wears glasses Wears hearing aid Home Medications atorvastatin 20 mg tablet 20 mg PO DAILY cholesterol 03/02/16 [History Last Taken 12/12/18] citalopram 40 mg tablet 40 mg PO DAILY depression 03/02/16 [History Last Taken 06/08/19] fenofibrate 160 mg tablet 160 mg PO DAILY cholesterol 03/02/16 [History Last Taken 12/12/18] tamsulosin 0.4 mg capsule 0.4 mg PO DAILY prostate 03/02/16 [History Last Taken 12/27/22 06:30] amlodipine 5 mg tablet 5 mg PO DAILY bp 08/03/16 [History Last Taken 12/27/22 06:30] valsartan 320 mg tablet 320 mg PO DAILY bp 08/06/16 [History Last Taken 12/27/22 06:30] tizanidine 4 mg capsule (Zanaflex) 12 mg PO QHS 05/25/22 [History Last Taken Unknown] apixaban 2.5 mg tablet 2.5 mg PO BID blood thinner #180 tabs 05/22/23 [Rx Last Taken Unknown] aspirin 81 mg capsule 81 mg PO DAILY 06/28/23 [History Last Taken Unknown] oxycodone 5 mg tablet 5 mg PO Q6H PRN pain 7 days #14 tabs 07/12/23 [Rx Last Taken Unknown] Allergy/AdvReac Type Severity Reaction Status Date / Time No Known Allergies Allergy Verified 07/12/23 10:40 Family History Father CVA (cerebral vascular accident) Parkinsons disease Mother Hypertension Brother CAD (coronary artery disease) Stented coronary artery Surgical History History of bilateral knee replacement History of cardiac radiofrequency ablation (RFA) (11/01/16) History of cardioversion (08/06/16) History of left heart catheterization (06/08/19) History of right knee surgery History of tonsillectomy History of varicose vein ligation Hx of colonoscopy Hx of cystoscopy Hx of inguinal hernia repair Hx of inguinal hernia surgery Hx of repair of rotator cuff Social History Smoking Status: Former smoker Vital Signs Vital Signs Vital Signs: 07/12/23 10:46 07/12/23 10:46 Temperature 97.3 F L Temperature Source Temporal Pulse Rate 61 Respiratory Rate 16 Respiratory Pattern Normal Blood Pressure 167/83 H Blood Pressure Mean 111 Blood Pressure Source Monitor Blood Pressure Position Semi-Fowlers Blood Pressure Location Right Arm Pulse Ox 96 Oxygen Delivery Method Room Air Weight Weight: 107.6 kg Body Mass Index (BMI) 32.1 Results Imagaing Radiology Impression KUB X-Ray 07/12/23 10:23 IMPRESSION: Tiny bilateral calculi in the lower pole of both kidneys. Electronically Signed: Andre Trinidad MD at 12:09 EST ,
--- NOTE | 2023-07-12 14:14 | DCINST_ITS ---
Discharge Instructions Diet Discharge Diet: No restrictions Activity Discharge Activity: Return to Normal Activity and May Not Drive (while taking narcotic pain medications.) Dressing / Incision Call your doctor if you observe: Fever of 101 or Higher Follow Up Care Please Follow Up With: Rangel Gordon MD When: Call [phone] for an appointment Test Results: Test results from this visit will be discussed in further detail at your follow- up appointment, if applicable. Discharge Plan Admission Primary Reason for Your Visit: cysto eswl Attending Provider: Rangel Gordon Primary Care Provider: Ligia Humphries Discharge Orders/Prescriptions Prescriptions: New oxycodone 5 mg tablet 5 mg PO Q6H PRN (Reason: pain) 7 Days Qty: 14 0RF Continued tizanidine [Zanaflex] 4 mg capsule 12 mg PO QHS apixaban 2.5 mg tablet 2.5 mg PO BID Qty: 180 3RF Patient Comments: WILL STOP 07/09 FOR SURGERY ON 07/[address] GORDON atorvastatin 20 MG tablet 20 mg PO DAILY citalopram 40 MG tablet 40 mg PO DAILY tamsulosin 0.4 MG capsule 0.4 mg PO DAILY fenofibrate 160 MG tablet 160 mg PO DAILY amlodipine 5 MG tablet 5 mg PO DAILY valsartan 320 MG tablet 320 mg PO DAILY aspirin 81 mg capsule 81 mg PO DAILY Patient Comments: WILL STOP 07/05 FOR SURGERY ON 07/[address] GORDON Referrals / Follow Up: Rangel Gordon MD [Med Staff - Active Staff] - Ligia Humphries DO [Primary Care Provider] - Disposition Disposition (needs filled in before D/C Order can be placed): Home, Self Care
--- NOTE | 2023-07-12 14:14 | OP.PCM_ITS ---
Report of Operation Date of Procedure: 07/12/23 Pre-Operative Diagnosis: Right kidney stones, left kidney stones and gross hem aturia Post-Operative Diagnosis: Same Surgery/Procedure Performed:: Right ESWL and left ESWL and diagnostic cystoscopy Description of Surgical Findings:: Patient presents to the hospital for treatment of a kidney stone with shockwave lithotripsy. In the preoperative area and x-ray was done to confirm the location of the stone. The x-ray was reviewed and the stone location was reviewed. In the preoperative setting I spoke with the patient regarding the treatment of the stone how the treatment would be conducted and the expectations after surgery. The patient understands there is a risk of bleeding and infection. Also discussed the very rare risk of hematoma or damage to the kidney. We also discussed the risk that the shockwave machine will fail to break the stone adequately and that the patient may need other surgical procedures. We also discussed the possibility that the patient may need a stent after the procedure. After reviewing the procedure with the patient, the patient is signed the consent form all the patient's questions were addressed and was taken back to the operating room for treatment of a kidney stone. Patient was taken back to the operating room, patient was identified by the nursing staff, we identified the side of the treatment and the patient side of treatment had been marked by my initials. The patient underwent general anesthetic and was placed supine on the lithotripter table. We then used fluoroscopy to identify the stone on the Right side. I then used the flexible cystoscope with the penis and testicles were prepped and draped in usual sterile fashion went into the urethra entire length of the urethra was normal, sphincter was normal, prostate was normal, when inside the bladder no tumors or stones seen within the bladder and then removed the flexible cystoscope and drained the bladder. We then positioned the patient under the lithotripter and we used triangulation technique to identify the location of the stone and then we made sure that the stone was engaged in the F2 focal point of F2 Donier lithoprior machine. Once the patient was positioned appropriately and the stone was identified and placed in the F2 focal point of the lithotripter machine we then proceeded with shockwave lithotripsy. In the beginning the shockwave was delivered at a rate of 90 shocks per minute, we monitor the EKG for any ectopy. The power was slowly increased to 5 kV and subsequently at the 7 kV. We then proceeded with the treatment we move the therapy had around during the treatment to make sure the stone stayed in the F2 focal point during the entire treatment and after 3000 shockwaves were delivered to the stone under fluoroscopic guidance, We then repositioned the patient under the lithotripter and we used triangulation technique to identify the location of the stone in the left kidney, and then we made sure that the stone was engaged in the F2 focal point of F2 Donier lithoprior machine. Once the patient was positioned appropriately and the stone was identified and placed in the F2 focal point of the lithotripter machine we then proceeded with shockwave lithotripsy. In the beginning the shockwave was delivered at a rate of 90 shocks per minute, we monitor the EKG for any ectopy. The power was slowly increased to 5 kV and subsequently at the 7 kV. We then proceeded with the treatment we move the therapy had around during the treatment to make sure the stone stayed in the F2 focal point during the entire treatment and after 3000 shockwaves were delivered to the stone under fluoroscopic guidance the treatment was completed. The patient was given instructions to call the office to make an a follow-up appointment with an xray to evaluate the success of the treatment, pateint understands that its possible the stones may need another procedure.At this point the patient's anesthetic was reversed patient was extubated and taken back to the PACU in stable condition. Surgeon: Rangel Armstrong Type of Anesthesia: General Drains: none Estimated Blood Loss (mL): 0 Admit VTE Documentation VTE Present on Admission: No VTE Mechan Device Prophylaxis: SCD's VTE Pharm Prophylaxis ordered?: No
[2023-07-12] MEDS: Ketorolac 15 MG/ML Vial IV (16:14)
--- NOTE | 2023-07-12 16:46 | SUR.PHASEII ---
incentive spirometer given to patient; performed together.
== END 2023-07-12 16:55 | disposition home or self-care (01) ==
LOC: SDC 10:21 → AC 10:22
PROVIDERS: PCP Family Medicine; Referring Provider Urology; Visit Provider Urology
PROC: (CPT 50590; principal; 2023-07-12 12:10)
DX: N20.0 Calculus of kidney (principal); I42.9 Cardiomyopathy, unspecified; I48.0 Paroxysmal atrial fibrillation; R31.0 Gross hematuria; E78.00 Pure hypercholesterolemia, unspecified; I25.10 Atherosclerotic heart disease of native coronary artery without angina pectoris; I10 Essential (primary) hypertension; F32.A Depression, unspecified; E66.9 Obesity, unspecified; G47.30 Sleep apnea, unspecified; Z79.82 Long term (current) use of aspirin; Z79.899 Other long term (current) drug therapy; Z87.891 Personal history of nicotine dependence; Z68.32 Body mass index [BMI] 32.0-32.9, adult
CPT/HCPCS: 50590; 52000; 00873; 74018; J7120; J2405

== ENCOUNTER → 2023-09-26 | Outpatient (CLI) | payer MEDICARE, OTHER, SELFPAY ==
[2023-09-26 17:49] LABS: Absolute Lymphocyte Count 1.04 X10^3/uL (0.83-4.51); Absolute Neutrophil Count 5.1 X10^3/uL (2.0-7.7); Basophil# 0.04 X10^3/uL; Basophil% 0.6 % (0-1); Eosinophil# 0.11 X10^3/uL; Eosinophils% 1.6 % (0-5); Hematocrit 49.4 % (40-54); Hemoglobin 15.6 g/dL (13.0-16.5); Lymphocyte # 1.04 X10^3/ul (0.83-4.51); Lymphocyte % 14.9 % (19-41); Mean Corp Hgb Conc 31.6 g/dL (32-36); Mean Corpuscular Hgb 25.3 pg (27.0-32.0); Mean Corpuscular Volume 80.1 fL (80-94); Mean Platelet Vol. 10.9 fl (6.2-12.0); Monocyte# 0.64 X10^3/uL; Monocyte% 9.2 % (0-10); NRBC Flagged by Analyzer 0 % (0-5); Neutrophil # 5.12 X10^3/uL (2.7-7.7); Neutrophil % 73.3 % (47-70); Platelet Count 166 K/mm3 (150-450); RBC Distribution Width CV 16.1 % (11.6-14.6); RBC Distribution Width SD 44.1 fl (35.1-43.9); Red Blood Count 6.17 M/mm3 (4.6-6.2)
[2023-09-26 18:14] LABS: ALB/GLOB Ratio 1.5 RATIO (0.9-2.4); AST(SGOT) 27 U/L (15-37); Alanine Aminotransfer ALT/SGPT 20 U/L (16-61); Albumin, Serum 4.1 g/dL (3.2-5.0); Alkaline Phosphatase 96 U/L (45-117); Anion Gap 7 (5-15); BUN 30 mg/dL (7-18); BUN/Creat Ratio 24.8 RATIO (10-20); Calcium,Total 9.5 mg/dL (8.5-10.1); Chloride 106 mmol/L (98-107); Creatinine, Serum 1.21 mg/dL (0.70-1.30); EST Glomerular Filtration Rate 62 mL/min (>60); Est Glom Filt Rate - Afr Amer 75 mL/min (>60); Globulin 2.8 g/dL (2.2-4.2); Glucose 127 mg/dL (74-106); Protein, Total 6.9 g/dL (6.4-8.2); Sodium Level 140 mmol/L (136-145)
== END | disposition home or self-care (01) ==
LOC: MFPLAB 17:00
PROVIDERS: Nurse Practitioner Family; PCP Family Medicine; Visit Provider Family Medicine
DX: Z01.818 Encounter for other preprocedural examination (principal)
CPT/HCPCS: 36415; 80053; 85025

== ENCOUNTER 2024-02-10 15:00 | Outpatient (RCR) | payer MEDICARE, OTHER, SELFPAY ==
--- NOTE | 2023-12-03 12:56 | HP.OTEVAL ---
Patient's Visit Information Visit Information Visit Information: NIKHIL DIAZ is a 78 year old M, referred to Occupational Therapy by Dr. 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 Date of Evaluation: 12/02/23 Occupational Therapist: Anne Marie Ellis, YNES/Michelle, CHT Subjective Subjective: Tthis 78 year old male was seen for OT eval with dx of right cmc OA with MP instability pt states he had sx about 6 weeks ago was casted until 11/29/23 - when he had his cast removed and pin removed from MPJ. sx date 10/15/23. pt arrives with cindy wrap and fiberglass casting for thumb spica- states he is ready to get soft cast off. 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 pt reports limited right hand use with all ADLS at this time. Pain right hand: Current Pain Intensity: 0 ROM Wrist: right 30/15 left 65/45 CMC: right 10* left 30* MP: right 15 left 30* IP: right 20 left 40 ROM Comments: left thumb also noted gravity meter observer OA deformity ( + shoulder sign) pt demo with tendency to extend thumb- therapist ed. to avoid motion Strength Heavy Equipment Supervisor: right left 65# Lateral Pinch: right NT left 14# Tripod Pinch: right NT left 12# Sensation Sensation Comments: denies Quick DASH-Disab of Arm,Shoulder& Hand Quick DASH Score: 46.6650 Goals Goal:100% adherence to protocol: Yes Comment: Dr. coffey Goal:Daily scar massage when approriate: Yes Goal:ROM equal to unaffected hand: Yes Goal:Heavy Equipment Supervisor/Pinch strength at least 75% of unaffected hand: Yes Comment: will not initiate until week 8 as long as no adverse symptoms of pain/edema Goal:No pain with affected hand use: Yes Goal:Full use of affected hand in daily activities including work: Yes Rehabilitation General Assessment: pt arrives 6 weeks and 6 days s/p from a right CMC arthroplasty with trapeziectomy, tendon transfer and capsulodesis. Pt arrives in need of custom orthosis to provide protection and support of recent CMC arthroplasty. Pt demo need for skilled OT services 1-2x week for 6-8 weeks to assist pt in recovery from his right cmc arthroplasty. Today therapist luis. custom orthosis- ed. in wear and sighs of precautions or ski irritation. pt demo understanding. therapist ed. pt on short arch wrist ROM (pain free motion) and supported CMC to allow IP flexion- therapist ed. pt on scar mtg, as well as no thumb extension at this time. pt demo understanding pt was given handout- pt demo understanding and agreed to POC. Rehabilitation Potential: Good Anticipated Interventions Anticipated Interventions: A/AAROM/PROM, Strengthening, Edema Control, Scar Care, Modalities, Orthoses, Joint Protection/Energy Conservation, Ergonomic Education, Education re assistive Equipment, Education re Diagnosis and Home Program Visit Plan Frequency: 1-2x /Week Duration: 4-6 Weeks General Plan: Dr. Coffey protocol for MCP capsulodesis with carpometacarpal arthroplasty s/p week 6 Fabricate thumb spica orthosis keep IP free Week 6 remove pin Re-form orthosis so that MCPJ is held in 20* to 30* flexion Begin motion of MCP joint with orthosis off may use exercise orthosis (finger of 8 or oval 8 orthosis) in place at MPJ to avoid MPJ extension, IPJ should be allowed full motion and MCPJ should be allowed full flexion. Avoid stretching the volar plat or stretching the thumb into abduction at the web space Week 8 wean MCPJ from thumb spica orthosis. Fabricate hand-based orthosis to hold MCPJ in 20* flexion (or use orthosis that was employed as exercise orthosis for daily activities) choice depends on activity level of pt. Week 10 Begin light isometric strengthening exercises 2x/day within pain tolerance Practice gripping abound objects of various circumferences in various positions with small orthosis for MCPJ in place Week 12 use hand-based orthosis only for high-demand activities Week 16 d/c use of orthosis if MCPJ is stable at 0* or greater in resting position (NO Hyperextension) TEXT: Thank you for the opportunity to evaluate your patient. For Medicare and Medicare HMO plans, please review the plan of care and approve it. It will need to be FAXED BACK to us at [phone] for Medicare purposes. Please let me know if there are questions or concerns regarding this plan of care. Physician Signature: Date:
--- NOTE | 2024-01-14 07:19 | HP.OTREVAL ---
Re-Evaluation Intro: Dr. 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 Please see the progress note below for an update on the occupational therapy plan of care! Subjective Subjective: pt states he is doing well- hand is staying 0-3/10 pain sore pt states he is performing all ADls and IADLs lifting with comfort cool on pt is happy with progress Objective Objective/Function: right wrist 60/40 right clinical staff rn strength 80# right lateral pinch 8# right tripod pinch 12# pt demo with great ROM and strength following CMC arthroplasty pt continues to demo with right MP hyper extension- therapist has ed. pt on avoiding this- pt verbalized understanding. pt working, lifting light weights and riding his recumbent bike. Plan Plan Plan: see pt in 3 weeks pt to cont. with thumb stabilization ex. avoiding MPJ hyper ext and use as tolerated with ADLs and IADLs Goals Goals Patient Goals: Improve Fine Motor Skills, Use Hand/Wrist/Arm Normally Again and Be More Independent in ADLS Goal:100% adherence to protocol: Yes Goal:Daily scar massage when approriate: Yes Goal:ROM equal to unaffected hand: Yes Goal:Medical Records Supervisor/Pinch strength at least 75% of unaffected hand: Yes Goal:No pain with affected hand use: Yes Goal:Full use of affected hand in daily activities including work: Yes Anticipated Interventions Anticipated Interventions Anticipated Interventions: A/AAROM/PROM, Strengthening, Edema Control, Scar Care, Modalities, Orthoses, Joint Protection/Energy Conservation, Ergonomic Education, Education re assistive Equipment, Education re Diagnosis and Home Program Re-Evaluation Ending Re-evaluation ending: Please do not hesitate to contact me at [phone] by phone or if you have questions or concerns regarding this new plan of care! Sincerely, Anne Marie Ellis, OTR/L, CHT
== END 2024-02-10 19:00 | disposition home or self-care (01) ==
LOC: OT 15:00
PROVIDERS: PCP Family Medicine; Referring Provider Student in an Organized Health Care Education/Training Program; Visit Provider Student in an Organized Health Care Education/Training Program
DX: M25.341 Other instability, right hand (principal); M18.11 Unilateral primary osteoarthritis of first carpometacarpal joint, right hand
CPT/HCPCS: 97110; 97140; 97166; 97530; 97760

== ENCOUNTER → 2024-05-08 | Outpatient (CLI) | payer MEDICARE, OTHER, SELFPAY ==
--- NOTE | 2024-05-08 16:12 | RAD_ITS ---
INDICATION: FALL/PAIN EXAMINATION/TECHNIQUE: X-RAY - XR Hip Unilateral with Pelvis when performed; 2-3 Views COMPARISON: No relevant prior comparison study available FINDINGS: PELVIC BONES: No displaced fracture, destructive or sclerotic lesions. Note that overlapping bowel shadows may however obscure fine detail. Sacroiliac joints are unremarkable. No widening of the pubic symphysis. HIPS: Joint spaces well-maintained bilaterally. No acute fracture. SOFT TISSUES: No soft tissue swelling or gas. Prostate implant therapy seeds present. RAD/HIP, UNI W/ Pelvis 2-3 Views IMPRESSION: No evidence of displaced pelvic or hip fracture. Electronically Signed: Rad Miles MD at 16:51 EDT ,
== END | disposition home or self-care (01) ==
LOC: RAD 16:11
PROVIDERS: PCP Family Medicine; Referring Provider Internal Medicine; Visit Provider Internal Medicine
DX: M25.551 Pain in right hip (principal); W19.XXXA Unspecified fall, initial encounter
CPT/HCPCS: 73502

== ENCOUNTER → 2024-08-14 | Outpatient (CLI) | payer MEDICARE, OTHER, SELFPAY ==
--- NOTE | 2024-08-14 07:19 | ECHOD_ITS ---
Reason For Study: AFIB Procedure This was a 2D Doppler, Color Flow transthoracic echocardiogram. Exam performed in department. Left Ventricle Normal LV size. Left ventricular systolic function is normal. The left ventricular ejection fraction is 60 %. No regional wall motion abnormalities noted. Right Ventricle Normal RV size. Normal systolic function. Atria Normal left atrium. Normal right atrium. Mitral Valve Normal mitral valve. Mild (1+) eccentric mitral valve insufficiency. Tricuspid Valve Normal tricuspid valve. Aortic Valve Trisinus/trileaflet aortic valve. Pulmonic Valve Normal pulmonic valve. Great Vessels Normal aortic root. The pulmonary artery is normal size. Normal inferior vena cava. Pericardium/Pleural No pericardial effusion. MMode/2D Measurements & Calculations LVIDd: 4.5 cm IVSd: 1.4 cm LVOT diam: 2.2 cm LVIDs: 3.4 cm LVPWd: 1.1 cm LVOT area: 3.8 cm2 FS: 24.8 % LAV(MOD-bp): 71.1 ml LVAd ap4: 30.2 cm2 SV(MOD-sp4): 60.9 ml LAV(MOD-bp) Indexed: 32.0 ml/m2 LVLd ap4: 8.1 cm SI(MOD-sp4): 27.5 ml/m2 LAV(MOD-sp2): 71.3 ml EDV(MOD-sp4): 101.0 ml LAV(MOD-sp4): 68.8 ml EDV(sp4-el): 95.9 ml LVAs ap4: 17.4 cm2 LVLs ap4: 6.8 cm ESV(MOD-sp4): 40.1 ml ESV(sp4-el): 38.0 ml EF(MOD-sp4): 60.3 % EF(sp4-el): 60.4 % SV(sp4-el): 57.9 ml LA A4 area: 22.7 cm2 LA dimension(2D): 4.7 cm RA A4 area: 14.0 cm2 Time Measurements MV dec time: 0.23 sec Doppler Measurements & Calculations MV E max issac: 72.7 cm/sec Lat Peak E' Issac: 7.9 cm/sec Med Peak E' Issac: 7.2 cm/sec MV A max issac: 81.8 cm/sec E/E' lat: 9.3 E/E' med: 10.1 MV E/A: 0.89 MV V2 max: 96.8 cm/sec Ao V2 max: 120.4 cm/sec MV max P.7 mmHg MV dec slope: 322.3 cm/sec2 Ao max P.8 mmHg MV V2 mean: 55.0 cm/sec Ao V2 mean: 85.1 cm/sec MV mean P.5 mmHg Ao mean P.3 mmHg MV V2 VTI: 31.2 cm Ao V2 VTI: 26.0 cm AV (velocity ratio): 0.80 MVA(VTI): 2.5 cm2 VIKTORIA(I,D): 3.0 cm2 VIKTORIA(V,D): 3.1 cm2 LV V1 max: 98.0 cm/sec SV(LVOT): 78.1 ml PA V2 max: 99.5 cm/sec LV V1 max P.8 mmHg PA V2 mean: 69.0 cm/sec LV V1 mean P.2 mmHg LV V1 mean: 68.4 cm/sec LV V1 VTI: 20.8 cm ECHO/Echo Complete Interpretation Summary Normal LV size. Left ventricular systolic function is normal. The left ventricular ejection fraction is 60 %. Mild (1+) eccentric mitral valve insufficiency. Structurally normal valves. Ordering Physician: Isai Serna Referring Physician: Isai Serna Performed By: Carlene Joy RCS
--- NOTE | 2024-08-17 11:40 | STRESSREP ---
Stress Test Report Exercise myocardial perfusion stress test. 79-year-old man with a history of hypertension and atrial flutter Stress protocol: Resting EKG demonstrates normal sinus rhythm with a rate of 61 bpm resting blood pressure is 128/72 mmHg. The patient exercised according to the regular Niall protocol for a total duration of 9 minutes and 30 seconds attaining a maximum heart rate of 136 bpm which was 95% of maximum predicted heart rate; the maximum workload was 11.6 metabolic equivalents. At rest there were no ST or T wave changes noted to suggest ischemia and at peak exercise upsloping ST changes only were noted which did not meet the criteria for ischemia. No clinical angina was noted the test was terminated due to the target heart rate being achieved/fatigue. The peak blood pressure was 168/88 mmHg. Rate-pressure product was 18,000. Myocardial perfusion protocol. 15 mCi of technetium 99m sestamibi was injected at rest. The patient exercised according to regular Niall protocol for total duration of 9-1/2 minutes and at peak exercise 43.9 mCi of technetium 99m sestamibi was injected stress images were obtained stress and rest images were reconstructed in comparing the short axis vertical long and horizontal long axis. Gated images were also obtained. Perfusion SPECT analysis: Review of the stress images demonstrate normal uptake of tracer noted in all areas of the myocardium. The resting images similarly demonstrate normal uptake of tracer noted in all areas of the myocardium. No areas of reversibility are noted to suggest ischemia no previous infarct was noted. Gated SPECT analysis: The gated ejection fraction is 45%. Conclusion: Normal exercise myocardial perfusion stress test at a high workload Mildly reduced ejection fraction.
== END | disposition home or self-care (01) ==
LOC: CVS 07:18
PROVIDERS: PCP Internal Medicine; Referring Provider Internal Medicine Cardiovascular Disease; Visit Provider Internal Medicine Cardiovascular Disease
DX: I25.10 Atherosclerotic heart disease of native coronary artery without angina pectoris (principal)
CPT/HCPCS: 78452; 93017; 93306; A9500

== ENCOUNTER → 2024-09-02 | Outpatient (CLI) | payer MEDICARE, OTHER, SELFPAY ==
[2024-09-02 14:02] LABS: PSA,Total- Diagnostic 1.98 ng/mL (0.0-4.0)
== END | disposition home or self-care (01) ==
LOC: LAB 13:17
PROVIDERS: PCP Internal Medicine; Referring Provider Urology; Visit Provider Urology
DX: C61 Malignant neoplasm of prostate (principal)
CPT/HCPCS: 36415; 84153

== ENCOUNTER → 2024-09-03 | Outpatient (CLI) | payer MEDICARE, OTHER, SELFPAY ==
[2024-09-03 09:05] LABS: Absolute Lymphocyte Count 0.97 X10^3/uL (0.83-4.51); Absolute Neutrophil Count 3.8 X10^3/uL (2.0-7.7); Basophil# 0.04 X10^3/uL; Basophil% 0.7 % (0-1); Eosinophils% 1.8 % (0-5); Hematocrit 46.4 % (40-54); Hemoglobin 14.6 g/dL (13.0-16.5); Lymphocyte # 0.97 X10^3/ul (0.83-4.51); Lymphocyte % 17.7 % (19-41); Mean Corp Hgb Conc 31.5 g/dL (32-36); Mean Corpuscular Volume 82.6 fL (80-94); Mean Platelet Vol. 9.9 fl (6.2-12.0); Monocyte# 0.54 X10^3/uL; Monocyte% 9.9 % (0-10); NRBC Flagged by Analyzer 0 % (0-5); Neutrophil % 69.4 % (47-70); Platelet Count 148 K/mm3 (150-450); RBC Distribution Width CV 14.8 % (11.6-14.6); RBC Distribution Width SD 44.1 fl (35.1-43.9); Red Blood Count 5.62 M/mm3 (4.6-6.2); White Blood Count 5.5 K/mm3 (4.4-11.0)
[2024-09-03 09:41] LABS: Vitamin B12 510 pg/mL (211-911); Vitamin D,25 Hydroxy 41.7 ng/mL
[2024-09-03 10:34] LABS: ALB/GLOB Ratio 1.4 RATIO (0.9-2.4); AST(SGOT) 25 U/L (15-37); Alanine Aminotransfer ALT/SGPT 30 U/L (16-61); Albumin, Serum 3.7 g/dL (3.2-5.0); Alkaline Phosphatase 121 U/L (45-117); Anion Gap 4 (5-15); BUN 21 mg/dL (7-18); BUN/Creat Ratio 21.2 RATIO (10-20); Calcium,Total 9.7 mg/dL (8.5-10.1); Chloride 106 mmol/L (98-107); Cholesterol 89 mg/dL (200); Creatinine, Serum 0.99 mg/dL (0.70-1.30); EST Glomerular Filtration Rate 78 mL/min (>60); Est Glom Filt Rate - Afr Amer 94 mL/min (>60); Globulin 2.7 g/dL (2.2-4.2); Glucose 89 mg/dL (74-106); High Density Lipoprotein 55 mg/dL; Potassium 4.1 mmol/L (3.5-5.1); Protein, Total 6.4 g/dL (6.4-8.2); Sodium Level 136 mmol/L (136-145); Triglycerides 67 mg/dL; Very Low Density Lipoprotein 13 mg/dL (5-40)
== END | disposition home or self-care (01) ==
PROVIDERS: PCP Internal Medicine; Referring Provider Internal Medicine; Visit Provider Internal Medicine
DX: I10 Essential (primary) hypertension (principal); E55.9 Vitamin D deficiency, unspecified
CPT/HCPCS: 36415; 80053; 80061; 82306; 82607; 85025

== ENCOUNTER 2025-01-06 13:30 | Outpatient (RCR) | payer MEDICARE, OTHER, SELFPAY ==
--- NOTE | 2024-11-03 13:11 | HP.PTEVAL_ITS ---
Patient's Visit Information Visit Information Visit Information: NIKHIL DIAZ is a 79 year old M referred to Physical Therapy by Dr. Edna Reynaga MD with a diagnosis of R UT pain. Date of Evaluation: 09/02/24 Physical Therapist: Humphrey Olson DPT Visit Plan Frequency: 1x/Week Duration: 6 Weeks Plan: 1) DN to R UT, UT and levator scap strength 2) mid trap strengthening 3) pec stretching Subjective Subjective: Pt. is here today for her initial evaluation with diagnosis of R UT pain. Pt. reports no mech of injury, but reports having some neck and R UT pain for a few years. He has been told that he has arthritis in his neck. Pt. reports more recently his UT on the R side has become much worse. Pt. denies N/T, no myotomal weakness. He reports this symptoms have been waking him up at night and is more severe at night. He has seen ortho in the past and they report not being able to do anything for his neck. Pt. reports he feels this is different. Pt. is hopeful to reduce symptoms in order to get back to all houshold activities without limitations. Pain R UT: Pain Intensity (Out of 10): 4 Pain Intensity Range: 8 Objective Objective: POSTURE: Pt. has FH posture and rounded shoulders. Pt. is able to improve, but not full correct. PALPATION: Pt. has tenderness at R levator scap origin and R UT region. Not as much soreness on L side of throughout cervical erector spinae. NEURO: Pt. has normal sensation and normal DTR of BUEs. ROM: Pt has some limited OH mobility. CERVICAL SPINE: flexion min loss tightness, ext mod/max loss tightness, rotation R mod loss increase NW, rotation L min loss NE. MMT: full strength no issues - spurlings, seems to be more musculature in nature. Balance/Special Test Scores Oswestry Neck Score: 24 Goals Goal 1:: LTG: pt. to be I with HEP. Goal Time Frame: 4-6 Weeks Goal 2:: STG: pt. to sleep throughout the night without increase in symptoms. Goal Time Frame: 2-4 Weeks Goal 3:: LTG: Pt. have full cervical ROM without increase in symptoms. Goal Time Frame: 4-6 Weeks Rehabilitation Potential Physical Therapy Diagnosis: Pt. has signs and symptoms consistent with R UT pain. Pt. has some R UT pain with palpation and decreased ROM. Rehabilitation Potential: Excellent Anticipated Interventions Patient/Client Instruction: Educate patient on: Condition, Plan of Care, Risk Factors and Benefits of Fitness Program For the Purpose of:: To improve decision making, To facilitate caregiver knowledge, To improve self management, To prevent re-injury and To improve ability to perform tasks related to life management Therapeutic Exercise to Include: Strength training, Power training, Passive ROM, Active ROM and Scapular Strength/Stabilization For the Purpose of:: To decrease pain, To increase ROM, To improve nutrient deli very to tissue, To increase oxygenation perfusion, To improve muscle performance and motor function and To improve ability to perform ADL's Manual Therapy Techniques to Include: Mobilization, Functional dry needling and Soft tissue mobilization For the Purpose of:: To decrease pain, To decrease swelling/inflammation, To increase ROM and To improve nutrient delivery to tissue Text: Thank you for the opportunity to evaluate your patient. For Medicare and Medicare HMO plans, please review the plan of care and approve it. It will need to be FAXED BACK to us at [phone] for Medicare purposes. For Medicare only, by signing this I certify the plan of care. Please let me know if there are questions or concerns regarding this plan of care. Physician Signature: Date:
== END 2025-01-06 19:00 | disposition home or self-care (01) ==
LOC: PT 13:30
PROVIDERS: PCP Internal Medicine; Referring Provider Internal Medicine; Visit Provider Internal Medicine
DX: M54.2 Cervicalgia (principal); M25.511 Pain in right shoulder
CPT/HCPCS: 97110; 97161